=== PATIENT | female | born 1975 | race Hispanic/Latino ===

== ENCOUNTER → 2018-10-06 | Day surgery (SDC) | payer BC ==
[~2018-10-06] MED LIST: ADIPEX-P37.5 M1; DICLOFENAC; FENTANYL CITRATE/PF 100MCG/2 ML INJ ONE; HYOSCYAMINE SULFATE 0.5 MG/ML INJ ONE; LIDOCAINE HCL 2% LOCAL INJ 5 ML SDV VIAL INJ ONE; MIDAZOLAM HCL 2 MG/2 ML VIAL ONE; PROPOFOL IV EMULSION 10 MG/ML 20 ML VIAL ONE; PROPOFOL IV EMULSION 10 MG/ML 50 ML VIAL ONE
--- NOTE | 2018-10-06 14:44 | Operative Report ---
DATE OF PROCEDURE: October 06, 2018 REFERRING PHYSICIAN: Dr. Deangelo Cleveland. PROCEDURE PERFORMED: Colonoscopy and polypectomy. INDICATIONS FOR COLONOSCOPY: Colorectal cancer screening. Mother with colon cancer. MEDICATION: Patient was done under MAC. Please see anesthesiologist's note. PROCEDURE: With the patient in left lateral decubitus position, a flexible fiberoptic Olympus colonoscope was inserted into the rectum with ease and advanced all the way to the cecum. Mucosa overlying the cecum appeared to be within normal limits. Two minute polyps were hot biopsied from the ascending colon, one site was hemoclipped. The transverse descending and sigmoid appeared to be within normal limits. One polyp from the rectum was hot biopsied. The scope was then retroflexed into the distal rectum and small internal hemorrhoids were noted, none of which was actively bleeding. The scope was then straightened out and was subsequently withdrawn. Patient tolerated the procedure well. IMPRESSION 1. Ascending colon polyps x2, hot biopsied, one polypectomy site hemoclipped. 2. Rectal polyp x1, hot biopsied. 3. Internal hemorrhoids, none actively bleeding. PLAN: Follow up histology. Initiate high-fiber, low-fat diet. Initiate high-fiber supplement. Patient might benefit from a followup colonoscopy in 3 years. Job#: [id number] ANISH cc:DR. DEANGELO CLEVELAND
--- OUTSIDE RECORDS SUMMARY | 2018-10-08 11:52 | XMS REPORT ---
Author Author [facility] Address Unknown Phone Unavailable Care Team Providers Care Cast Shell Grinder Name Role Phone Unavailable Unavailable Problems This patient has no known problems. Allergies, Adverse Reactions, Alerts This patient has no known allergies or adverse reactions. Medications This patient has no known medications. Results Test Description Test Time Test Comments Text Results Atomic Results Result Comments SCR MAMM BILATERAL WON CAD DIGITAL 2018-08-09 15:31:48 - SCR MAMM BILATERAL WON CAD DIGITALBILATERAL DIGITAL SCREENING MAMMOGRAM 3D/2D WITH CAD: 08/09/2018CLINICAL: Asymptomatic. Digital breast tomosynthesis was performed in addition to routine CC and MLO views. Current mammographic images were evaluated by either a Vaavud M-Vu or a Bloggerce ImageChecker CAD (computer aided detection system). No prior exams were available for comparison. There are sca ttered fibroglandular tissues in both breasts. No suspicious mass, architectural distortion, malignant type calcification, or lymph node abnormality detected. IMPRESSION: NEGATIVEThere is no mammographic evidence of malignancy. Resume annual screening mammography in one year. Alfreda walsh/traci:08/09/2018 15:31:48 Unit Support Representative: Su EL, [facility]-FWletter sent: BIRADS 1-2 Normal Mammogram BI-RADS: 1 Negative
== END | disposition home or self-care (01) ==
LOC: OR 09:19
PROVIDERS: ATTEND Internal Medicine Gastroenterology
DX: Z12.11 Encounter for screening for malignant neoplasm of colon (principal); D12.2 Benign neoplasm of ascending colon; D12.8 Benign neoplasm of rectum; K64.8 Other hemorrhoids; R03.0 Elevated blood-pressure reading, without diagnosis of hypertension; M54.5 Low back pain; Z68.32 Body mass index [BMI] 32.0-32.9, adult; Z80.0 Family history of malignant neoplasm of digestive organs
CPT/HCPCS: 45384; 81025; J1980; J2001; J2250; J2704

== ENCOUNTER 2019-08-07 21:42 | Inpatient (IN) | payer BC ==
[~2019-08-07] VITALS: Ht 162.6 cm; Wt 90.7 kg
[~2019-08-07 21:42] MED LIST changes: -FENTANYL CITRATE/PF 100MCG/2 ML INJ ONE; -HYOSCYAMINE SULFATE 0.5 MG/ML INJ ONE; -LIDOCAINE HCL 2% LOCAL INJ 5 ML SDV VIAL INJ ONE; -MIDAZOLAM HCL 2 MG/2 ML VIAL ONE; -PROPOFOL IV EMULSION 10 MG/ML 20 ML VIAL ONE; -PROPOFOL IV EMULSION 10 MG/ML 50 ML VIAL ONE
[2019-08-07] MEDS ORDERED: SODIUM CHLORIDE 0.9% 1000ML 1,000 ML IV STA (22:04)
[2019-08-07] MEDS ORDERED: SODIUM CHLORIDE 0.9% 1000ML 1,000 ML ONE (22:21)
[2019-08-07] MEDS ORDERED: SODIUM CHLORIDE 0.9% 1000ML 1,000 ML IV ONE (22:30)
[2019-08-07 22:52] LABS: BASOPHILS % 0.2 % (0.0-1.0); EOSINOPHILS % 0.1 % (0.0-6.0); HEMATOCRIT 40.8 % (34.2-44.1); HEMOGLOBIN 13.9 g/dL (12.0-16.0); LYMPHOCYTES # (AUTO) 2.4 (1.0-3.2); LYMPHOCYTES % 11.9 % (18.0-39.1); MEAN CORPUSCULAR HEMOGLOBIN 29.6 pg (28-32); MEAN CORPUSCULAR HGB CONC 34.1 g/dL (31-35); MONOCYTES # (AUTO) 1.3 (0.2-0.8); MONOCYTES % 6.2 % (4.4-11.3); NEUTROPHILS # (AUTO) 16.1 (2.1-6.9); NEUTROPHILS % 79.3 % (38.7-80.0); PLATELET COUNT 254 x10e3/uL (140-360); RED BLOOD COUNT 4.69 x10e6/uL (3.6-5.1); RED CELL DISTRIBUTION WIDTH 13.9 % (11.7-14.4)
[2019-08-07 22:56] LABS: INR 0.83; PROTHROMBIN TIME 11.9 seconds (11.9-14.5)
[2019-08-07 23:06] LABS: ALBUMIN 3.3 g/dL (3.5-5.0); ALBUMIN/GLOBULIN RATIO 1.1 (0.8-2.0); ANION GAP 21.3 mmol/L (8-16); CALCIUM 9.2 mg/dL (8.4-10.2); CREATININE, SERUM 1.7 mg/dL (0.57-1.11)
[2019-08-07 23:12] LABS: POTASSIUM 2.3 mmol/L (3.5-5.1)
[2019-08-07 23:14] LABS: CREATINE KINASE MB 0.9 ng/mL (0-5.0)
[2019-08-07] MEDS ORDERED: POTASSIUM CHLORIDE 10MEQ/100ML 100 ML IV ONE (23:15)
[2019-08-07] MEDS ORDERED: POTASSIUM CHLORIDE 10MEQ EA PO ONE (23:15)
--- NOTE | 2019-08-07 23:48 | Diagnostic Imaging Report ---
History: High blood pressure Comparison studies: None Technique: Axial images were obtained from the skull base to the vertex. Coronal and sagittal reconstructions obtained from the axial data. Dose modulation, iterative reconstruction, and/or weight based adjustment of the mA/kV was utilized to reduce the radiation dose to as low as reasonably achievable. Findings: Scalp/skull: No abnormalities. No fractures, blastic or lytic lesions. Extra-axial spaces: No masses. No fluid collections. Brain sulci: Appropriate for age. Ventricles: Normal in size and configuration. No hydrocephalus. Parenchyma: No abnormal densities. No masses, hemorrhage, acute or chronic cortical vascular insults. Sellar/suprasellar region: No abnormalities Craniocervical junction: Patent foramen magnum. No Chiari one malformation. IMPRESSION: No abnormalities . Signed by: DR Fredy Lynch M.D. on 08/07/2019 11:44 PM
--- NOTE | 2019-08-07 23:54 | Diagnostic Imaging Report ---
EXAMINATION: CHEST SINGLE (PORTABLE) INDICATION: High blood pressure COMPARISON: None FINDINGS: AP view TUBES and LINES: None. LUNGS: Low lung volumes. Mild central bronchial wall thickening. No consolidations. PLEURA: No pleural effusion or pneumothorax. HEART AND MEDIASTINUM: The cardiomediastinal silhouette is unremarkable. BONES AND SOFT TISSUES: No acute osseous lesion. Soft tissues are unremarkable. UPPER ABDOMEN: No free air under the diaphragm. IMPRESSION: Low lung volumes. Mild central bronchial wall thickening can be seen with bronchitis. Signed by: Mitchell Diane DO on 08/07/2019 11:51 PM
[2019-08-08] VITALS (7 sets, daily range): BP systolic 100–120; BP diastolic 54–65
[2019-08-08] MEDS ORDERED: PIPER-TAZ 3.375 GM 50 ML IV SCH
[2019-08-08 00:05] LABS: BILIRUBIN,URINE NEGATIVE (NEGATIVE); CLARITY,URINE SL CLOUDY (CLEAR); COLOR,URINE YELLOW (YELLOW); KETONES,URINE NEGATIVE (NEGATIVE); LEUKOCYTE ESTERASE ,URINE NEGATIVE (NEGATIVE); NITRITE,URINE NEGATIVE (NEGATIVE); PROTEIN,URINE DIPSTICK 2+ (NEGATIVE); URINE UROBILINOGEN 0.2 mg/dL (0.2 - 1)
[2019-08-08] MEDS: SODIUM CHLORIDE 0.9% 1000ML 1,000 ML IV SCH ×4 (00:07→23:24)
[2019-08-08 00:11] LABS: BACTERIA,URINE RARE /HPF; EPITHELIAL CELLS,URINE FEW /LPF; RBC,URINE 0-5 /HPF (0-5)
[2019-08-08 00:12] LABS: MUCUS,URINE MODERATE (RARE)
[2019-08-08 02:44] LABS: BASOPHILS % 0.2 % (0.0-1.0); EOSINOPHILS % 0.1 % (0.0-6.0); HEMATOCRIT 33.4 % (34.2-44.1); HEMOGLOBIN 11.2 g/dL (12.0-16.0); LYMPHOCYTES # (AUTO) 1.5 (1.0-3.2); LYMPHOCYTES % 12.3 % (18.0-39.1); MEAN CORPUSCULAR HEMOGLOBIN 29.7 pg (28-32); MEAN CORPUSCULAR HGB CONC 33.5 g/dL (31-35); MEAN CORPUSCULAR VOLUME 88.6 fL (81-99); MONOCYTES # (AUTO) 0.9 (0.2-0.8); MONOCYTES % 7.3 % (4.4-11.3); NEUTROPHILS # (AUTO) 9.4 (2.1-6.9); NEUTROPHILS % 77.9 % (38.7-80.0); RED BLOOD COUNT 3.77 x10e6/uL (3.6-5.1); RED CELL DISTRIBUTION WIDTH 13.8 % (11.7-14.4)
[2019-08-08] MEDS ORDERED: SODIUM CHLORIDE 0.9% 1000ML 1,000 ML IV SCH (02:45)
[2019-08-08 02:48] LABS: PLATELET COUNT 155 x10e3/uL (140-360)
[2019-08-08 03:03] LABS: ANION GAP 14.5 mmol/L (8-16); CREATININE, SERUM 1.04 mg/dL (0.57-1.11); MAGNESIUM 2.1 MG/DL (1.3-2.1)
[2019-08-08 03:04] LABS: POTASSIUM 2.5 mmol/L (3.5-5.1)
[2019-08-08 03:05] LABS: CALCIUM 7.8 mg/dL (8.4-10.2)
[2019-08-08] MEDS ORDERED: POTASSIUM CHLORIDE 10MEQ/100ML 100 ML IV ONE (03:15)
[2019-08-08] MEDS ORDERED: POTASSIUM CHLORIDE 10MEQ EA PO ONE (03:15)
[2019-08-08 05:57] LABS: CREATINE KINASE MB 1.1 ng/mL (0-5.0)
[2019-08-08 06:42] LABS: ALANINE AMINOTRANSFERASE 26 IU/L (0-55); ALBUMIN 2.3 g/dL (3.5-5.0); ALKALINE PHOSPHATASE 47 IU/L (40-150); ANION GAP 13.7 mmol/L (8-16); CALCIUM 7.5 mg/dL (8.4-10.2); CARBON DIOXIDE 25 mmol/L (22-29); CHLORIDE 102 mmol/L (98-107); CREATININE, SERUM 0.91 mg/dL (0.57-1.11); GLUCOSE 158 mg/dL (74-118); SODIUM 138 mmol/L (136-145)
[2019-08-08 06:45] LABS: POTASSIUM 2.7 mmol/L (3.5-5.1)
--- NOTE | 2019-08-08 06:45 | NUR ---
NOTIFIED DR CLEVELAND OF CRITICAL POTASSIUM OF 2.7; 40MEQ PO NOW AND REPEAT IN 4 HOURS;
--- NOTE | 2019-08-08 07:09 | NUR ---
NOTIFIED DR CLEVELAND OF CRITICAL LACTIC OF 3.2
[2019-08-08 07:11] LABS: BLOOD UREA NITROGEN 25 mg/dL (7-26); BUN/CREATININE RATIO 29 (6-25)
[2019-08-08 07:31] LABS: EST GLOMERULAR FILTRATION RATE > 60 ML/MIN (60-)
[2019-08-08] MEDS ORDERED: POTASSIUM CHLORIDE 20 MEQ TAB CR PO STA (07:31)
[2019-08-08] MEDS: PIPER-TAZ 3.375 GM 50 ML IV SCH ×3 (07:40→21:00)
--- NOTE | 2019-08-08 11:07 | History and Physical ---
REASON FOR ADMISSION: 1. Dehydration. 2. Hypotension. 3. Hypokalemia. 4. Leukocytosis. HISTORY OF PRESENT ILLNESS: The patient is a 44-year-old lady, evidence of severe hypertension yesterday with blood pressures of 200/120 with a pulse rate of 120 and sinus tachycardia. She was given some Edarbi and beta blockers signs of acute renal failure with hypokalemia and leukocytosis. Currently, the patient is feeling much better with fluid boluses. PAST MEDICAL HISTORY: Significant for hypertension, hypothyroidism, chronic anemia. MEDICATIONS: See DEC. ALLERGIES: NONE. SOCIAL HISTORY: Nonsmoker, nondrinker. Lives at home with her family. PHYSICAL EXAMINATION: VITAL SIGNS: Temperature is currently 92/60, pulse 74, sats 100% on room air. GENERAL: She is in no apparent distress, lying in bed. NECK: Supple. No lymphadenopathy. CARDIOVASCULAR: Regular rate and rhythm. LUNGS: Clear to auscultation bilaterally. ABDOMEN: Good bowel sounds. Soft, nontender. EXTREMITIES: No clubbing or cyanosis. NEUROLOGIC: Nonfocal. ASSESSMENT AND PLAN: 1. Hypotension, most likely secondary to the Edarbi since the patient is now found to be in severe dehydration so we will continue with IV fluids and obviously hold the blood pressure medicines. 2. Dehydration. Continue with IV fluids. 3. Acute renal failure. Continue with IV fluids and should resolve with fluids. 4. Hypokalemia. We will continue to replace. 5. Leukocytosis. We will continue to monitor the patient on antibiotics. Please see hospital chart for full details. MD JOSE RAFAEL Oneill/KIMBERLYL /[id number]
--- NOTE | 2019-08-08 14:44 | NUR ---
WOUNDCARE CONSULT FOR 44 YO FEMALE ADMIT FROM ER HOLDING HX OF LEFT LE PARTIAL THICKNESS INJURY R/T FALL LABS : WBC-12.07 ,HGB- 11.2 GLUCOSE - 158 BLOOD CULTURE PENDING PATIENT TAKING IV ANTIBIOTICS PIPERACILLIN WOUND ON LEFT LOWER LEG PARTIAL THICKNESS 14CM X 6.5CM X .2 CM WITH 75% YELLOW SLOUGH AND 25% RED BEEFY GRANDULATION SURROUNDING TISSUE NEWLY EPITHELIZED PINK AND BLANCHABLE PATIENT REPORTS PAIN WHEN AREA IS TOUCHED BUT STATES NO PAIN AT TIME OF THIS ASSESSMENT FURTHER DESCRIPTION OF WOUND IS ON WOUND ASSESSMENT FORM RECOMMENDATIONS : NURSING TO DAILY CLEAN WITH NS AND APPLY SANTYL TO LEFT LEG PARTIAL THICKNESS WOUND BED YELLOW SLOUGH COVER WITH 4X4 WRAP WITH KERLIX SECURE WITH LIGHTLY WRAPPED COBAN ONCE WOUND BED IS FREE OF SLOUGH A COLLAGEN APPLICATION CAN BE USED ON CLEAN WOUND BED TO HELP FURTHER PROMOTE EPITHELIALIZATION AND HEALING NURSING TO RECONSULT WOUND CARE IF ANY FURTHER ASSISTANCE IS NEEDED Addendum: 08/08/19 at 1502 by Rich Lawson RN Amended: Links added.
--- NOTE | 2019-08-08 19:35 | NUR ---
Patient received sitting in chair. AAO x 4. Patient had no complaints of pain. Respirations even and non-labored. Fall precautions implemented. Dressing to left leg CDI. IVF infusing at 125 cc/hr. Patient instructed to call for assistance when needed. Call light within reach.
[2019-08-09] VITALS (7 sets, daily range): BP systolic 100–171; BP diastolic 48–113
[2019-08-09] MEDS: PIPER-TAZ 3.375 GM 50 ML IV SCH ×4 (03:57→20:00)
[2019-08-09 05:35] LABS: BASOPHILS % 0.3 % (0.0-1.0); HEMATOCRIT 33.6 % (34.2-44.1); HEMOGLOBIN 10.8 g/dL (12.0-16.0); LYMPHOCYTES # (AUTO) 1.2 (1.0-3.2); LYMPHOCYTES % 16.3 % (18.0-39.1); MEAN CORPUSCULAR HEMOGLOBIN 29.4 pg (28-32); MEAN CORPUSCULAR HGB CONC 32.1 g/dL (31-35); MEAN CORPUSCULAR VOLUME 91.6 fL (81-99); MONOCYTES # (AUTO) 0.3 (0.2-0.8); MONOCYTES % 4.5 % (4.4-11.3); NEUTROPHILS # (AUTO) 5.8 (2.1-6.9); PLATELET COUNT 164 x10e3/uL (140-360); RED BLOOD COUNT 3.67 x10e6/uL (3.6-5.1); RED CELL DISTRIBUTION WIDTH 14.3 % (11.7-14.4)
--- NOTE | 2019-08-09 05:42 | NUR ---
Femoral central line dressing changed. Patient tolerated well.
[2019-08-09 05:59] LABS: ALANINE AMINOTRANSFERASE 29 IU/L (0-55); ALBUMIN 2.5 g/dL (3.5-5.0); ALKALINE PHOSPHATASE 53 IU/L (40-150); ANION GAP 12.3 mmol/L (8-16); BLOOD UREA NITROGEN 20 mg/dL (7-26); BUN/CREATININE RATIO 31 (6-25); CARBON DIOXIDE 22 mmol/L (22-29); CHLORIDE 112 mmol/L (98-107); CREATININE, SERUM 0.64 mg/dL (0.57-1.11); EST GLOMERULAR FILTRATION RATE > 60 ML/MIN (60-); GLUCOSE 151 mg/dL (74-118); POTASSIUM 3.3 mmol/L (3.5-5.1); SODIUM 143 mmol/L (136-145)
[2019-08-09] MEDS: COLLAGENASE OINTMENT 30 GM TUBE TP SCH (08:27)
[2019-08-09 08:40] LABS: BAND NEUTROPHILS % (MANUAL) 1 %; LYMPHOCYTES % (MANUAL) 18 % (19-48); MONOCYTES % (MANUAL) 2 % (3.4-9.0); NEUTROPHILS % (MANUAL) 78 % (40-74)
[2019-08-09 08:41] LABS: ANISOCYTOSIS SLIGHT; OVALOCYTES FEW; POIKILOCYTOSIS SLIGHT
[2019-08-09 08:42] LABS: RBC MORPHOLOGY COMMENT NORMAL
[2019-08-09 08:43] LABS: PLATELET ESTIMATE ADEQUATE; PLATELET MORPHOLOGY COMMENT FEW LARGE
[2019-08-09] MEDS ORDERED: HYDRALAZINE HCL 20 MG/ML VIAL IV STA (08:43)
[2019-08-09] MEDS ORDERED: POTASSIUM CHLORIDE 20 MEQ TAB CR PO ONE (09:00)
[2019-08-09] MEDS: SODIUM CHLORIDE 0.9% 1000ML 1,000 ML IV SCH ×2 (09:18→15:31)
--- NOTE | 2019-08-09 17:40 | Diagnostic Imaging Report ---
EXAMINATION: Renal Doppler ultrasound. CLINICAL HISTORY :Hypertension COMPARISON: None TECHNIQUE: Grayscale and color Doppler evaluation of the kidneys and bladder was performed in transverse and longitudinal planes. Doppler interrogation of the main, hilar, segmental and arcuate renal arteries bilaterally as well as evaluation of the aorta were performed. DISCUSSION: RIGHT KIDNEY: The right kidney measures 11.2 cm in length and shows normal echogenicity. The right renal cortex measures 1.4 cm. No hydronephrosis, shadowing calculi or solid mass lesions. . Right main renal artery PSV is 26.4 cm/sec. Highest right hilar artery PSV is 27.5cm/sec. Highest right segmental artery PSV is 61.2 cm/sec. Arterial waveforms are normal. The right renal artery PSV/aortic PSV ratio is 0.5. LEFT KIDNEY: The left kidney measures 11.0 cm in length and shows normal echogenicity. The left renal cortex measures 1.6 cm. No hydronephrosis, shadowing calculi or solid mass lesions. Left main renal artery PSV is 69.0 cm/sec. Highest left hilar artery PSV is 69.0 cm/sec. Highest left segmental artery PSV is 81.3cm/sec. Arterial waveforms are normal. The left renal artery PSV/aortic PSV ratio is 1.4. Abdominal aortic PSV is 50.7 cm/sec. BLADDER: No mass or calculi. The bladder measures 4.7 x 3.4 x 6.3 cm. IMPRESSION: Renal arterial velocities as above. No hydronephrosis or renal calculi. Signed by: Sheyla Patrick MD on 08/09/2019 5:36 PM
--- NOTE | 2019-08-09 20:40 | NUR ---
R femoral cath d/c, noted excessive bleeding, hematoma, and bruising. Rapid response called. Applied surgiseal. Called Dr. Kwon studio operations engineer in charge and received orders.
[2019-08-09] MEDS ORDERED: SODIUM CHLORIDE 0.9% 1000ML 2,000 ML ONE (20:42)
[2019-08-09 20:53] LABS: HEMATOCRIT 30.9 % (34.2-44.1); HEMOGLOBIN 9.7 g/dL (12.0-16.0)
[2019-08-09 21:13] LABS: ANION GAP 14.9 mmol/L (8-16); BLOOD UREA NITROGEN 20 mg/dL (7-26); BUN/CREATININE RATIO 28 (6-25); CALCIUM 7.8 mg/dL (8.4-10.2); CARBON DIOXIDE 18 mmol/L (22-29); CHLORIDE 112 mmol/L (98-107); CREATININE, SERUM 0.72 mg/dL (0.57-1.11); EST GLOMERULAR FILTRATION RATE > 60 ML/MIN (60-); GLUCOSE 319 mg/dL (74-118); POTASSIUM 3.9 mmol/L (3.5-5.1); SODIUM 141 mmol/L (136-145)
[2019-08-09] MEDS ORDERED: HYDROCODONE/APAP 5MG-325MG TAB PO PRN (21:30)
--- NOTE | 2019-08-09 21:40 | NUR ---
Dr. Lama stated to hold patient discharge until tomorrow.
[2019-08-09] MEDS ORDERED: SODIUM CHLORIDE 0.9% 250ML 250 ML ONE (21:57)
[2019-08-10] VITALS (8 sets, daily range): BP systolic 114–153; BP diastolic 59–95
[2019-08-10] MEDS: SODIUM CHLORIDE 0.9% 1000ML 1,000 ML IV SCH ×3 (01:00→20:40)
[2019-08-10 01:55] LABS: HEMATOCRIT 25.2 % (34.2-44.1); HEMOGLOBIN 8.3 g/dL (12.0-16.0)
[2019-08-10] MEDS: PIPER-TAZ 3.375 GM 50 ML IV SCH ×4 (03:00→20:40)
--- NOTE | 2019-08-10 04:48 | Discharge Summary ---
DISCHARGE DIAGNOSES: 1. Acute renal failure. 2. Dehydration. 3. Hypotension. 4. Leukocytosis. HISTORY OF PRESENT ILLNESS AND HOSPITAL COURSE: See hospital chart for full details. The patient is a lady, well known to me, presented to the office with hypertensive emergency, where she was placed on Edarbi, where the patient went home and unfortunately got hypotensive. She came to the emergency room where she was then noted to be in acute renal failure, most likely secondary to over diuretics and dehydration, which caused a high renin angiotensin state and therefore the sudden drop in her blood pressure after she did take 1 dose of the Edarbi, so she was brought in and held on the medication, placed on IV fluids and replaced of her electrolytes. As her blood pressure improved, electrolytes improved. The patient felt great. She was back to her baseline at the time of discharge. She is able to be discharged home with continuation of her home medicines and follow up with me in 3 days in the office. Please see hospital chart for full details. MD JOSE RAFAEL Oneill/SUMAN /[id number]
[2019-08-10] MEDS: COLLAGENASE OINTMENT 30 GM TUBE TP SCH (08:20)
--- NOTE | 2019-08-10 10:13 | Progress Note ---
DATE: 08/10/2019 SUBJECTIVE: The patient came in with extreme dehydration. Femoral line was put in. Yesterday when the femoral line was taken out, the patient did not stop bleeding and Angio-Seal was placed and the patient is better now. H and H are stabilized. Currently still complaining of some pain in the right femoral area. No abdominal pain. No chest pain. No shortness of breath. No nausea, vomiting, or diarrhea. Positive for hypertensive episodes and slight dizziness on getting up. OBJECTIVE: VITAL SIGNS: Temperature is 97.5, pulse is 105, respirations of 19, blood pressure is 114/73, and pulse oximetry of 93%. HEENT: Normocephalic, atraumatic. CVS: S1 and S2 normal. Regular rate and rhythm. ABDOMEN: Nontender, nondistended. EXTREMITIES: No clubbing, no cyanosis, no edema. The femoral area with Angio-Seal present. Positive for some ecchymosis around the area. Also has ecchymosis in the left elbow area. No signs of trauma noted. LABORATORY VALUES: Hemoglobin is 8.3, hematocrit 25.2, white count is 7.61, came in with white count of 20,000 with sepsis. Chemistry; sodium is 141, potassium of 3.9, BUN of 20, creatinine 0.72, glucose is 319. Coags are normal. ASSESSMENT: 1. Sepsis. The patient is currently on antibiotic. She is on Zosyn. 2. Acute kidney injury with acidosis. The patient's creatinine has improved. We will continue to monitor. 3. Acute blood loss anemia from a femoral line. Angio-Seal has been established and the patient is doing better. Continue monitoring her BMP. 4. Hyperglycemia. Check A1c. 5. Blood cultures are negative. Urinary tract infection. Continue on Zosyn. Further recommendation per clinical course. We will keep the patient overnight tonight and continue monitoring her. MD LISA AustinJ/MODL /[id number]
[2019-08-11] VITALS (8 sets, daily range): BP systolic 133–195; BP diastolic 86–116
[2019-08-11] MEDS: PIPER-TAZ 3.375 GM 50 ML IV SCH ×4 (01:35→20:00)
[2019-08-11] MEDS ORDERED: BISACODYL 5 MG TAB EC PO ONE (02:01)
[2019-08-11 05:36] LABS: BASOPHILS % 0.1 % (0.0-1.0); EOSINOPHILS % 0.1 % (0.0-6.0); LYMPHOCYTES # (AUTO) 1.5 (1.0-3.2); LYMPHOCYTES % 18.6 % (18.0-39.1); MEAN CORPUSCULAR HGB CONC 32.2 g/dL (31-35); MEAN CORPUSCULAR VOLUME 93.3 fL (81-99); MONOCYTES # (AUTO) 0.4 (0.2-0.8); MONOCYTES % 4.9 % (4.4-11.3); NEUTROPHILS # (AUTO) 5.6 (2.1-6.9); NEUTROPHILS % 69.6 % (38.7-80.0); PLATELET COUNT 128 x10e3/uL (140-360); RED BLOOD COUNT 2.23 x10e6/uL (3.6-5.1); RED CELL DISTRIBUTION WIDTH 14.7 % (11.7-14.4)
[2019-08-11 05:39] LABS: HEMATOCRIT 20.8 % (34.2-44.1); HEMOGLOBIN 6.7 g/dL (12.0-16.0)
[2019-08-11 05:59] LABS: ANION GAP 10.5 mmol/L (8-16); BLOOD UREA NITROGEN 9 mg/dL (7-26); BUN/CREATININE RATIO 17 (6-25); CALCIUM 7.9 mg/dL (8.4-10.2); CARBON DIOXIDE 21 mmol/L (22-29); CHLORIDE 112 mmol/L (98-107); CREATININE, SERUM 0.52 mg/dL (0.57-1.11); EST GLOMERULAR FILTRATION RATE > 60 ML/MIN (60-); GLUCOSE 138 mg/dL (74-118); POTASSIUM 3.5 mmol/L (3.5-5.1); SODIUM 140 mmol/L (136-145)
[2019-08-11 07:16] LABS: HEMATOCRIT 20.7 % (34.2-44.1); HEMOGLOBIN 6.6 g/dL (12.0-16.0)
[2019-08-11] MEDS ORDERED: FUROSEMIDE INJ 10 MG/ML 2 ML VIAL IV ONE (08:00)
[2019-08-11] MEDS ORDERED: SODIUM CHLORIDE 0.9% 250ML 250 ML IV NR (08:15)
[2019-08-11] MEDS: COLLAGENASE OINTMENT 30 GM TUBE TP SCH (08:26)
[2019-08-11] MEDS ORDERED: IOPAMIDOL 370 MG/ML 200 ML INFUS..BTL INJ ONE ×2 (08:50→18:40)
[2019-08-11] MEDS ORDERED: SODIUM CHLORIDE 0.9% 50ML 0 ML ONE (08:50)
[2019-08-11 09:09] LABS: INR 0.94; PROTHROMBIN TIME 13.1 seconds (11.9-14.5)
[2019-08-11 10:20] LABS: PARTIAL THROMBOPLASTIN TIME 21.4 seconds (23.8-35.5)
--- NOTE | 2019-08-11 10:33 | Progress Note ---
DATE: 08/11/2019 SUBJECTIVE: The patient is a 44-year-old female, who came in with acute abdominal infection, probably urinary. The patient's white count is elevated. Lactic acid was elevated too. The patient is on Zosyn right now. The patient had a femoral line placed and placement was removed, and the patient had acute amount of bleeding with ecchymosis around the area of bleed. Angio-Seal was established. The patient continues to bleed at the site and ecchymosis is noted. Hemoglobin has dropped from considerably to 6.8 at this time. The patient is not symptomatic except for some abdominal pain. No chest pain. Positive also for shortness of breath on exertion. OBJECTIVE: VITAL SIGNS: Temperature is 97.8, pulse of 96, respirations of 20, blood pressure is 133/87, pulse oximetry of 100% on room air. HEENT: Normocephalic, atraumatic. The patient has a slight amount of edema noted on the face. CVS: S1 and S2 normal. Regular rate and rhythm. ABDOMEN: Tender in the right upper quadrant. EXTREMITIES: No clubbing, no cyanosis. Positive for 2+ edema. MEDICATIONS: At this time, Zosyn. She is getting a Santyl for skin tear on her left leg. She is also getting sodium chloride 75 mL an hour, which we will discontinue. ASSESSMENT: Ms. Venita Chappell with acute blood loss anemia, probably femoral site. PLAN: 1. Transfuse 2 units of PRBC with Lasix in between. 2. Skin shows a lot of ecchymosis in and around the side of the femoral access and also in and around her elbows, and also in her face and abdomen. We will go ahead and check the platelets again and continue monitoring this. Possible consult with Dr. Blackmon, Hematology is on board. 3. Hypertension, better controlled at this time. We will continue to monitor her blood pressures. 4. Impaired fasting glucose with elevated glucose, hemoglobin A1c of 6.3. Lasix also will be given for the patient. Further recommendation per clinical course. We will keep a close eye on this patient and monitor very closely. Further recommendation per clinical course. MD LISA AustinJ/SUMAN /[id number]
--- NOTE | 2019-08-11 15:05 | NUR ---
Visit made by the Spiritual Care Department Pastoral Visitor, Matt Mccarthy. PV provided pastoral presence, hospitality, and supportive listening. Pastoral Visitor informed pt/family of the scope of [facility] [employer] and availability. EVAN SOSA Licensed Psychologist Manager Spiritual Care Department O: [phone] Pager: [phone] ([phone] number calling from)
[2019-08-11] MEDS ORDERED: SODIUM CHLORIDE 0.9% 250ML 250 ML ONE ×2 (17:20→17:39)
--- NOTE | 2019-08-11 17:35 | Diagnostic Imaging Report ---
EXAM: CT Abdomen and Pelvis WITH contrast INDICATION: ^ABDOMINAL PAIN ^[id number] ^1645 ^Y COMPARISON: Renal Doppler ultrasound 08/09/2019 TECHNIQUE: Abdomen and pelvis were scanned utilizing a multidetector helical scanner from the lung base to the pubic symphysis after administration of IV contrast. Coronal and sagittal reformations were obtained. Routine protocol was performed. Scan was performed when during portal venous phase. IV CONTRAST: 100 mL of Isovue-370 ORAL CONTRAST: None RADIATION DOSE: Total DLP: A 43.5 mGy*cm Estimated effective dose: (DLP x 0.015 x size factor) mSv COMPLICATIONS: None FINDINGS: LINES and TUBES: Gastric banding place. No surrounding fluid collections or fat stranding. LOWER THORAX: Unremarkable HEPATOBILIARY: No focal hepatic lesions. No biliary ductal dilation. GALLBLADDER: Cholecystectomy. SPLEEN: No splenomegaly. PANCREAS: No focal masses or ductal dilatation. ADRENALS: No adrenal nodules KIDNEYS/URETERS: Kidneys enhance symmetrically. No hydronephrosis. No cystic or solid mass lesions. No stones. GI TRACT: No abnormal distention, wall thickening, or evidence of bowel obstruction. Appendix is not visualized and likely surgically absent. PELVIC ORGANS/BLADDER: Unremarkable. LYMPH NODES: No lymphadenopathy. VESSELS: Unremarkable. PERITONEUM / RETROPERITONEUM: No free air or fluid. BONES: Unremarkable. SOFT TISSUES: Moderate fat stranding in the right inguinal region may reflect edema or evolving hematoma. IMPRESSION: Gastric lap banding adequate position with no surrounding fluid collections or fat stranding. No dilatation of the stomach. Cholecystectomy and appendectomy. Fat stranding in the right inguinal region may reflect edema or evolving hematoma. Signed by: Dr. Angie Gama M.D. on 08/11/2019 5:32 PM
--- NOTE | 2019-08-11 17:41 | NUR ---
INFORMED DR JIMÉNEZ ELEVATED BP, ORDERS RECEIVED
[2019-08-11] MEDS: HYDRALAZINE HCL 20 MG/ML VIAL IV PRN (17:54)
--- NOTE | 2019-08-11 17:55 | NUR ---
RECEIVED CALL FROM TELEMETRY, PATIENTS HEART RATE 150, AND PATIENT STATES SHE FELT ANXIOUS WHEN HER HEART RATE INCREASED, BP 149/93 HR 140 02 SATS 100% RA, CALL PLACED TO DR JIMÉNEZ AND INFORMED THAT PATIENTS HEART RATE INCREASED 1 HOUR AFTER TRANSFUSION, ORDERS RECEIVED FOR METOPROLOL 2.5 IVP AND BENADRYL 12.5 MG IVP X 1, CONTINUE TO MONITOR PATIENT CLOSELY AND CALL WITH ANY CHANGES
[2019-08-11] MEDS ORDERED: METOPROLOL TARTRATE INJ 1 MG/ML VIAL IV ONE (18:30)
[2019-08-11] MEDS ORDERED: DIPHENHYDRAMINE HCL INJ 50 MG/ML VIAL IV NR (18:30)
[2019-08-11] MEDS ORDERED: SODIUM CHLORIDE 0.9% 50ML 50 ML ONE (18:40)
[2019-08-11] MEDS ORDERED: FUROSEMIDE INJ 10 MG/ML 2 ML VIAL IV PRN (18:45)
[2019-08-12] VITALS (8 sets, daily range): BP systolic 134–180; BP diastolic 65–108
[2019-08-12] MEDS ORDERED: SODIUM CHLORIDE 0.9% 250ML 250 ML ONE ×2 (00:09→08:16)
--- NOTE | 2019-08-12 00:15 | NUR ---
Started #2 PRBC at this time. BRITNEY. Will continue to monitor.
[2019-08-12] MEDS: PIPER-TAZ 3.375 GM 50 ML IV SCH ×4 (04:17→21:07)
[2019-08-12 05:22] LABS: BASOPHILS % 0.4 % (0.0-1.0); EOSINOPHILS % 0.1 % (0.0-6.0); HEMATOCRIT 31.1 % (34.2-44.1); HEMOGLOBIN 10.3 g/dL (12.0-16.0); LYMPHOCYTES # (AUTO) 1.6 (1.0-3.2); LYMPHOCYTES % 16.5 % (18.0-39.1); MEAN CORPUSCULAR HEMOGLOBIN 29.6 pg (28-32); MEAN CORPUSCULAR HGB CONC 33.1 g/dL (31-35); MEAN CORPUSCULAR VOLUME 89.4 fL (81-99); MONOCYTES # (AUTO) 0.6 (0.2-0.8); MONOCYTES % 5.7 % (4.4-11.3); NEUTROPHILS # (AUTO) 7.1 (2.1-6.9); NEUTROPHILS % 72.5 % (38.7-80.0); PLATELET COUNT 129 x10e3/uL (140-360); RED BLOOD COUNT 3.48 x10e6/uL (3.6-5.1); RED CELL DISTRIBUTION WIDTH 15.5 % (11.7-14.4)
[2019-08-12 05:57] LABS: ALANINE AMINOTRANSFERASE 29 IU/L (0-55); ALBUMIN/GLOBULIN RATIO 1.1 (0.8-2.0); ALKALINE PHOSPHATASE 52 IU/L (40-150); ANION GAP 15.3 mmol/L (8-16); BLOOD UREA NITROGEN 8 mg/dL (7-26); BUN/CREATININE RATIO 15 (6-25); CALCIUM 8.7 mg/dL (8.4-10.2); CARBON DIOXIDE 23 mmol/L (22-29); CHLORIDE 104 mmol/L (98-107); CREATININE, SERUM 0.55 mg/dL (0.57-1.11); EST GLOMERULAR FILTRATION RATE > 60 ML/MIN (60-); GLUCOSE 133 mg/dL (74-118); MAGNESIUM 1.8 MG/DL (1.3-2.1); POTASSIUM 3.3 mmol/L (3.5-5.1); SODIUM 139 mmol/L (136-145)
--- NOTE | 2019-08-12 07:00 | NUR ---
BEDSIDE SHIFT REPORT RECEIVED FROM THE COAL CHEMIST RN. EDUCATED PT ABOUT FALL PRECAUTIONS. BED IS LOW AND LOCKED. SIDE RAILS X2. CALL LIGHT WITH IN EASY REACH. INSTRUCTED PT TO USE CALL LIGHT FOR ANY NEEDS. PT VERBALIZED UNDERSTANDING. PT DENIES NEEDS AT THIS TIME.
[2019-08-12 07:36] LABS: BAND NEUTROPHILS % (MANUAL) 2 %; EOSINOPHILS % (MANUAL) 1 % (0-7); LYMPHOCYTES % (MANUAL) 19 % (19-48); MONOCYTES % (MANUAL) 6 % (3.4-9.0); NEUTROPHILS % (MANUAL) 72 % (40-74); NUCLEATED RED BLOOD CELLS 2
[2019-08-12 07:41] LABS: OVALOCYTES FEW; POIKILOCYTOSIS SLIGHT
[2019-08-12 07:42] LABS: POLYCHROMASIA FEW
[2019-08-12 07:43] LABS: PLATELET ESTIMATE SLIGHTLY DECREASED; PLATELET MORPHOLOGY COMMENT NORMAL
[2019-08-12 07:47] LABS: ANISOCYTOSIS MODERATE; RBC MORPHOLOGY COMMENT ABNORMAL
[2019-08-12] MEDS: HYDRALAZINE HCL 20 MG/ML VIAL IV PRN (07:54)
[2019-08-12] MEDS: COLLAGENASE OINTMENT 30 GM TUBE TP SCH (09:30)
--- NOTE | 2019-08-12 10:00 | NUR ---
PAGED DR. CLEVELAND AND REPORTED THE K LEVEL.
--- NOTE | 2019-08-12 11:00 | NUR ---
NEW ORDER RECEIVED FROM DR. CLEVELAND. 40 MEQ K DUR PO ONCE.
[2019-08-12] MEDS ORDERED: POTASSIUM CHLORIDE 20 MEQ TAB CR PO STA (11:02)
--- NOTE | 2019-08-12 13:30 | NUR ---
PAGED DR. CLEVELAND REGARDING PT D/C PLAN. NO NEW ORDERS RECEIVED.
--- NOTE | 2019-08-12 15:00 | NUR ---
PAGEEsperanza CLEVELAND AND REPORTED PT ELEVATED HR.
[2019-08-12] MEDS: METOPROLOL TARTRATE 25 MG TAB PO SCH (16:42)
--- NOTE | 2019-08-12 19:00 | NUR ---
BEDSIDE SHIFT REPORT GIVEN TO THE CHILLER OPERATOR RN. PT DENIED FURTHER NEEDS.
[2019-08-13 00:11] VITALS: BP 147/96
[2019-08-13] MEDS: PIPER-TAZ 3.375 GM 50 ML IV SCH ×2 (02:21→08:00)
[2019-08-13 04:59] VITALS: BP 182/95
[2019-08-13 05:26] LABS: BASOPHILS % 0.1 % (0.0-1.0); EOSINOPHILS % 0.1 % (0.0-6.0); HEMATOCRIT 28.3 % (34.2-44.1); HEMOGLOBIN 9.5 g/dL (12.0-16.0); LYMPHOCYTES # (AUTO) 1.1 (1.0-3.2); LYMPHOCYTES % 15.5 % (18.0-39.1); MEAN CORPUSCULAR HEMOGLOBIN 30.4 pg (28-32); MEAN CORPUSCULAR HGB CONC 33.6 g/dL (31-35); MEAN CORPUSCULAR VOLUME 90.4 fL (81-99); MONOCYTES # (AUTO) 0.4 (0.2-0.8); MONOCYTES % 6.3 % (4.4-11.3); NEUTROPHILS # (AUTO) 5.1 (2.1-6.9); NEUTROPHILS % 73.8 % (38.7-80.0); PLATELET COUNT 132 x10e3/uL (140-360); RED BLOOD COUNT 3.13 x10e6/uL (3.6-5.1); RED CELL DISTRIBUTION WIDTH 16.3 % (11.7-14.4)
[2019-08-13 05:44] LABS: ALANINE AMINOTRANSFERASE 31 IU/L (0-55); ALBUMIN 2.9 g/dL (3.5-5.0); ALBUMIN/GLOBULIN RATIO 1.2 (0.8-2.0); ALKALINE PHOSPHATASE 48 IU/L (40-150); BLOOD UREA NITROGEN 12 mg/dL (7-26); BUN/CREATININE RATIO 20 (6-25); CALCIUM 8.5 mg/dL (8.4-10.2); CARBON DIOXIDE 22 mmol/L (22-29); CHLORIDE 110 mmol/L (98-107); CREATININE, SERUM 0.61 mg/dL (0.57-1.11); EST GLOMERULAR FILTRATION RATE > 60 ML/MIN (60-); GLUCOSE 134 mg/dL (74-118); SODIUM 141 mmol/L (136-145)
[2019-08-13 06:30] LABS: MONOCYTES % (MANUAL) 7 % (3.4-9.0); NUCLEATED RED BLOOD CELLS 2
[2019-08-13 06:32] LABS: ANISOCYTOSIS SLIGHT; BAND NEUTROPHILS % (MANUAL) 2 %; LYMPHOCYTES % (MANUAL) 11 % (19-48); NEUTROPHILS % (MANUAL) 77 % (40-74); POIKILOCYTOSIS SLIGHT; POLYCHROMASIA FEW; RBC MORPHOLOGY COMMENT ABNORMAL
[2019-08-13 06:33] LABS: PLATELET ESTIMATE SLIGHTLY DECREASED; PLATELET MORPHOLOGY COMMENT NORMAL
--- NOTE | 2019-08-13 07:00 | NUR ---
BEDSIDE SHIFT REPORT RECEIVED FROM THE HIGH REACH OPERATOR RN. EDUCATED PT ABOUT FALL PRECAUTIONS. BED IS LOW AND LOCKED. SIDE RAILS X2. CALL LIGHT WITH IN EASY REACH. INSTRUCTED PT TO USE CALL LIGHT FOR ANY NEEDS. PT VERBALIZED UNDERSTANDING. PT DENIES NEEDS AT THIS TIME.
[2019-08-13 07:22] VITALS: BP 167/91
[2019-08-13] MEDS: METOPROLOL TARTRATE 25 MG TAB PO SCH (07:32)
[2019-08-13] MEDS: COLLAGENASE OINTMENT 30 GM TUBE TP SCH (07:33)
[2019-08-13 07:41] VITALS: BP 167/91
--- NOTE | 2019-08-13 07:45 | NUR ---
PT REFUSED ANTIBIOTICS. AT BEDSIDE.
--- NOTE | 2019-08-13 08:15 | NUR ---
PT DISCHARGED HOME SAFELY WITH HER .PT ESCORTED VIA WHEEL CHAIR TO THE FRONT ENTRANCE. TELE AND IV REMOVED. TIP INTACT. DRESSING APPLIED. NO RX PER DR. CLEVELAND. PT DENIED FURTHER NEEDS.
== END 2019-08-13 08:00 | disposition home or self-care (01) | DRG 872 ==
LOC: ER 21:42 → ERHOLD 23:39 → MED/SURG2 08-08 08:30
PROVIDERS: ADMIT Internal Medicine; ATTEND Internal Medicine
PROC: 02HV33Z Insertion of Infusion Device into Superior Vena Cava, Percutaneous Approach (ICD-10-PCS; principal; 2019-08-08)
PROC: B548ZZA Ultrasonography of Superior Vena Cava, Guidance (ICD-10-PCS; 2019-08-08)
PROC: 02PYX3Z Removal of Infusion Device from Great Vessel, External Approach (ICD-10-PCS; 2019-08-09)
DX: A41.9 Sepsis, unspecified organism (principal); N17.9 Acute kidney failure, unspecified; L97.821 Non-pressure chronic ulcer of other part of left lower leg limited to breakdown of skin; D62 Acute posthemorrhagic anemia; N39.0 Urinary tract infection, site not specified; T82.838A Hemorrhage due to vascular prosthetic devices, implants and grafts, initial encounter; E87.2 Acidosis; E86.0 Dehydration; I95.2 Hypotension due to drugs; D72.829 Elevated white blood cell count, unspecified; D72.825 Bandemia; E87.6 Hypokalemia; T46.1X5A Adverse effect of calcium-channel blockers, initial encounter; R73.9 Hyperglycemia, unspecified; S70.11XA Contusion of right thigh, initial encounter
CPT/HCPCS: 36415; 36555; 70450; 71045; 74177; 80048; 80053; 81001; 81025; 82550; 82553; 83036; 83605; 83735; 83880; 84484; 85014; 85018; 85025; 85379; 85384; 85610; 85730; 86850; 86900; 86920; 87040; 93005; 93306; 93976; 99284; J0360; J1200; J1940; J2543; J3480; J7030; J7050; P9016; Q9967

== ENCOUNTER 2019-10-24 19:19 | Inpatient (IN) | payer BC ==
[~2019-10-24] VITALS: Ht 162.6 cm; Wt 90.7 kg
[~2019-10-24 19:19] MED LIST changes: +ROPIVACAINE 0.5% 5 MG/ML 30 ML SDV ONE
[2019-10-24] MEDS ORDERED: HYDROCODONE/APAP 10MG-325MG TAB PO NR (20:15)
[2019-10-24 21:18] LABS: BASOPHILS % 0.3 % (0.0-1.0); EOSINOPHILS % 0.2 % (0.0-6.0); HEMATOCRIT 43.3 % (34.2-44.1); HEMOGLOBIN 13.9 g/dL (12.0-16.0); LYMPHOCYTES # (AUTO) 1.7 (1.0-3.2); LYMPHOCYTES % 14.2 % (18.0-39.1); MEAN CORPUSCULAR HGB CONC 32.1 g/dL (31-35); MEAN CORPUSCULAR VOLUME 84.2 fL (81-99); MONOCYTES # (AUTO) 0.7 (0.2-0.8); MONOCYTES % 6.1 % (4.4-11.3); NEUTROPHILS # (AUTO) 9.1 (2.1-6.9); NEUTROPHILS % 76.8 % (38.7-80.0); PLATELET COUNT 289 x10e3/uL (140-360); RED BLOOD COUNT 5.14 x10e6/uL (3.6-5.1); RED CELL DISTRIBUTION WIDTH 14.8 % (11.7-14.4)
[2019-10-24 21:22] LABS: INR 0.85; PROTHROMBIN TIME 12.1 seconds (11.9-14.5)
[2019-10-24 21:30] LABS: ALANINE AMINOTRANSFERASE 42 IU/L (0-55); ALBUMIN 3.6 g/dL (3.5-5.0); ALBUMIN/GLOBULIN RATIO 1.2 (0.8-2.0); ALKALINE PHOSPHATASE 78 IU/L (40-150); ANION GAP 14.7 mmol/L (8-16); BLOOD UREA NITROGEN 16 mg/dL (7-26); BUN/CREATININE RATIO 23 (6-25); CALCIUM 9.1 mg/dL (8.4-10.2); CARBON DIOXIDE 24 mmol/L (22-29); CHLORIDE 105 mmol/L (98-107); CREATININE, SERUM 0.71 mg/dL (0.57-1.11); EST GLOMERULAR FILTRATION RATE > 60 ML/MIN (60-); GLUCOSE 126 mg/dL (74-118); POTASSIUM 3.7 mmol/L (3.5-5.1); SODIUM 140 mmol/L (136-145)
--- NOTE | 2019-10-24 21:32 | Diagnostic Imaging Report ---
Exam: Left Knee Series. History: Fall/laceration to left knee Comparison: None. Findings: 3 views of the left knee. There is normal bone mineralization. Negative for acute, displaced fracture or dislocation. The joint spaces are preserved. No abnormal soft tissue calcification or mass. No suprapatellar effusion. Soft tissue defect anterior to the proximal portion of the tibia, likely representing the known laceration. Impression: 1. Soft tissue defect anterior to the proximal portion of the tibia consistent with laceration. No underlying acute bony abnormality. Signed by: Dr. Rome Lea M.D. on 10/24/2019 9:30 PM
[2019-10-24 21:34] LABS: PARTIAL THROMBOPLASTIN TIME 22.7 seconds (23.8-35.5)
--- NOTE | 2019-10-24 21:45 | Diagnostic Imaging Report ---
Exam: Left lower leg, 4 views History: Status post fall, laceration to left knee Comparison: None. Findings: There is normal bone mineralization. No acute, displaced fracture or dislocation. Joint spaces preserved. Soft tissue defect anterior to the proximal portion of the tibia, consistent with laceration. Impression: 1. Soft tissue laceration anterior to the proximal portion of the tibia. No underlying acute bony abnormality. Signed by: Dr. Rome Lea M.D. on 10/24/2019 9:44 PM
--- NOTE | 2019-10-24 21:48 | Diagnostic Imaging Report ---
Examination: Single AP view of the chest. COMPARISON: Preop for leg surgery INDICATION: None. IMPRESSION: 1. Lines and Tubes: None 2. Slightly hypoinflated lungs, which result in mild vascular crowding. No consolidation or effusion. 3. Cardiomediastinal silhouette is normal. 4. No acute bony abnormalities. Signed by: Dr. Rome Lea M.D. on 10/24/2019 9:46 PM
[2019-10-24] MEDS ORDERED: ONDANSETRON HCL INJ 2MG/ML 2ML 2 MG/ML VIAL IV PRN (22:00)
[2019-10-24] MEDS: CEFAZOLIN SOD 1 GM/NS 50ML 50 ML IV SCH (22:46)
[2019-10-24] MEDS: SODIUM CHLORIDE 0.9% 1000ML 1,000 ML IV SCH (22:46)
[2019-10-24] MEDS ORDERED: HYDRALAZINE HCL 20 MG/ML VIAL IV STA (23:02)
[2019-10-24] MEDS: HYDROMORPHONE 1MG/1ML INJ IV PRN (23:09)
[2019-10-25] MEDS: HYDROMORPHONE 1MG/1ML INJ IV PRN ×2 (03:36→07:25)
--- NOTE | 2019-10-25 03:57 | NUR ---
PATIENT STATES SHE HAD A TETANUS VACCINE MARCH 2019 WHEN SHE FIRST FELL AND HAD AN INJURY. DR CALHOUN INFORMED.
[2019-10-25 04:22] LABS: BACTERIA,URINE RARE /HPF; EPITHELIAL CELLS,URINE FEW /LPF; PREGNANCY TEST, URINE NEGATIVE (NEGATIVE); YEAST,URINE FEW
[2019-10-25 04:23] LABS: BILIRUBIN,URINE NEGATIVE (NEGATIVE); CLARITY,URINE CLEAR (CLEAR); COLOR,URINE YELLOW (YELLOW); KETONES,URINE NEGATIVE (NEGATIVE); LEUKOCYTE ESTERASE ,URINE TRACE (NEGATIVE); NITRITE,URINE NEGATIVE (NEGATIVE); PROTEIN,URINE DIPSTICK NEGATIVE (NEGATIVE); URINE UROBILINOGEN 0.2 mg/dL (0.2 - 1)
[2019-10-25] MEDS: HYDRALAZINE HCL 20 MG/ML VIAL IV PRN (06:29)
[2019-10-25] MEDS: CEFAZOLIN SOD 1 GM/NS 50ML 50 ML IV SCH ×2 (06:29→18:00)
--- NOTE | 2019-10-25 06:50 | NUR ---
RECEIVED REPORT FROM OFF GOING NURSE. PATIENT IN BED, AWAKE AND ALERT. NO S/S OF ACUTE DISTRESS. REPORTED SHE NEEDS TO VOID BUT DID NOT FEEL SHE COULD GET OOB AND AMBULATE. OFFERED PUREWIC AND PATIENT AGREED. PENDING ROOM ASSIGNMENT FOR ADMISSION. PATIENT REPORTS BEING NPO SINCE 2200 LAST NIGHT. BED DOWN CALL LIGHT IN REACH, WILL CONTINUE TO MONITOR.
[2019-10-25] MEDS: SODIUM CHLORIDE 0.9% 1000ML 1,000 ML IV SCH (07:25)
[2019-10-25] MEDS ORDERED: BACITRACIN 50,000 UNIT VIAL ONE (10:51)
[2019-10-25] MEDS ORDERED: ACETAMINOPHEN 1000 MG/100 ML 100 ML IV ONE (10:56)
[2019-10-25] MEDS ORDERED: LIDOCAINE 1% W/EPINEPHRINE 20 ML VIAL ONE (11:00)
[2019-10-25] MEDS ORDERED: MINERAL OIL STERILE 10ML VIAL ONE (11:11)
--- NOTE | 2019-10-25 11:21 | History and Physical ---
REASON FOR ADMISSION: 1. Left lower extremity open wound secondary to fall. 2. Hypertension. HISTORY OF PRESENT ILLNESS: The patient is a 44-year-old lady, who was walking in a restaurant where she hit some sticky footing that made her fall and sustained a large open wound to the left lower extremity with some exposed tissues. Therefore, she has been admitted for further evaluation and treatment. PAST MEDICAL HISTORY: Significant for hypertension. MEDICATIONS: See MAR. ALLERGIES: SEE MAR. SOCIAL HISTORY: Nonsmoker, nondrinker, lives at home with her . PHYSICAL EXAMINATION: VITAL SIGNS: Blood pressure 152/76, pulse 76, saturations 99% on room air. GENERAL: She has no apparent distress, lying in bed. NECK: Supple. CARDIOVASCULAR: Regular rate and rhythm. LUNGS: Clear to auscultation bilaterally. ABDOMEN: Has good bowel sounds. Soft, nontender. EXTREMITIES: No clubbing or cyanosis. Left leg below the knee on the medial side has a large skin tear and open wound with some exposed tissue. She has good dorsal pedis flow. NEUROLOGIC: Nonfocal. ASSESSMENT/PLAN: 1. Left leg open wound. We will consult Dr. Ontiveros, plastic surgeon to see if she needs any surgical intervention. 2. Left leg pain. We will continue with pain control. 3. Hypertension. We will continue to monitor these home medicines as necessary. 4. Leukocytosis. We will continue to monitor. Please see hospital chart for full details. MD JOSE RAFAEL Oneill/SUMAN /[id number]
[2019-10-25] MEDS ORDERED: MUPIROCIN 2% OINT 22 GM TUBE ONE (11:49)
[2019-10-25] MEDS ORDERED: NEOMYCIN/POLYMYX/BACITR OINT 0.9 GM PKT ONE (12:05)
[2019-10-25] MEDS ORDERED: CEFAZOLIN SOD 1 GM/NS 50ML 0 ML IV ONE (12:22)
[2019-10-25] MEDS ORDERED: FENTANYL CITRATE/PF 100MCG/2 ML INJ ONE (12:37)
[2019-10-25] MEDS ORDERED: HYDROMORPHONE 1MG/1ML INJ ONE (12:59)
[2019-10-25] MEDS ORDERED: HYDRALAZINE HCL 20 MG/ML VIAL ONE (13:00)
[2019-10-25 13:28] VITALS: BP 138/75
--- NOTE | 2019-10-25 13:28 | NUR ---
RCD PT FROM RECOVERY BY BED PT IS ALERT AND ORIENTED VITALS CHECKED PT RESTING ON BED ADMISSION ASSESSMENT DONE PT HAVE WOUND AND WOUND VACC ON LEFT LOWER LEG WORKING GOOD ,GRAFT DONOR SITE HAVE LITTLE OOZING DR KEYS IS AWARE ABOUT IT ,IV PATENT BY SALINE FLUSH INSTRUCTED THE PT REGARDING HOSPITAL POLICY AND ROUTINE BED LOW AND LOCKED CALL LIGHT IN REACH
--- NOTE | 2019-10-25 14:00 | NUR ---
PAGED AND TALKED DR CLEVELAND REGARDING DIET ,HOME MED RENEWAL GOT NEW ORDERS
[2019-10-25] MEDS ORDERED: BYSTOLIC10 MG PO (14:09)
--- NOTE | 2019-10-25 14:30 | NUR ---
wound vacc is working
--- NOTE | 2019-10-25 14:42 | NUR ---
WOUND CARE CONSULT FOR PLACEMENT OF NEGATIVE PRESSURE DRESSING TO POST OPERATIVE WOUND DR KEYS PERFORMED OR DEBRIDEMENT OF FULL THICKNESS WOUND TO LEFT LOWER LEG WITH PLACEMENT OF SPLIT THICKNESS SKIN GRAFT AFTER WHICH PLACEMENT OF HAWLEY AND NEPHEW NEGATIVE PRESSURE UNIT ORDERED IN RECOVERY ROOM PATIENT IN PACU NURSING AT BEDSIDE PATIENT ALERT IV PAIN MEDICATION ADMINISTERED PATIENT STATES NO PAIN AT THIS TIME AT A 2 ON 1-10 SCALE PATIENT PRESENTS WITH POST OPERATIVE WOUND 15CM X14CM WITH EDGES STAPLED INTACT TO SPLIT THICKNESS SKIN GRAFT COVERED WITH XEROFORM TITUS NO BLEEDING OR ADVERSE SIGNS NOTED SMITA SKIN PREPPED AND DRAPED BLACK FOAM PLACED ON WOUND BASE DRAPE USED TO MAKE AIR TIGHT SEAL AND CONNECTED TO UNIT AND CANISTER NEGATIVE PRESSURE SUCTION ACHIEVED 120 MMHG CONTINUOUS SETTING NO SIGNS OF LEAKS OR COMPLAINTS OF PAIN AT THIS TIME DRESSING SECURED WITH LIGHT OUTER REMOVABLE WRAP Addendum: 10/25/19 at 1456 by Rich Lawson RN Amended: Links added.
[2019-10-25] MEDS ORDERED: SUGAMMADEX SODIUM 200 MG/2 ML VIAL IV ONE (15:35)
[2019-10-25 16:00] VITALS: BP 148/87
[2019-10-25] MEDS: NEBIVOLOL 10 MG TAB PO SCH (16:05)
[2019-10-25] MEDS: HYDROCODONE/APAP 5MG-325MG TAB PO PRN (16:05)
[2019-10-25 16:09] VITALS: BP 138/75
[2019-10-25] MEDS ORDERED: LIDOCAINE HCL 2% LOCAL INJ 5 ML SDV VIAL INJ ONE (18:13)
[2019-10-25] MEDS ORDERED: KETOROLAC TROMETHAMINE 30 MG/ML VIAL ONE (18:13)
[2019-10-25] MEDS ORDERED: DEXAMETHASONE SOD PHOS INJ 4 MG/ML VIAL ONE (18:13)
[2019-10-25] MEDS ORDERED: ONDANSETRON HCL INJ 2MG/ML 2ML 2 MG/ML VIAL ONE (18:13)
[2019-10-25] MEDS ORDERED: PROPOFOL IV EMULSION 10 MG/ML 20 ML VIAL ONE (18:13)
--- NOTE | 2019-10-25 18:45 | NUR ---
PT RESTING ON BED BED SIDE REPORT GIVEN TO ONCOMING NURSE
--- NOTE | 2019-10-25 18:56 | Operative Report ---
DATE OF PROCEDURE: 10/25/2019 SURGEON: Jemal Ontiveros MD PREOPERATIVE DIAGNOSIS: Wound left leg, approximately 140 to 150 cm2. POSTOPERATIVE DIAGNOSIS: Wound left leg, approximately 140 to 150 cm2. PROCEDURES: 1. Sharp excisional debridement of skin and subcutaneous tissue, left leg 140 cm2. 2. Split-thickness skin grafting, left leg 140 cm2. ANESTHESIA: General. HISTORY: The patient is a 44-year-old female, who came through the emergency room last night with a large wound on the anterior aspect of the lower leg. The risks, benefits, and alternatives of treatment were discussed with the patient and she is prepared to undergo the procedure as outlined. PROCEDURE IN DETAIL: The patient was marked preoperatively in the holding area. She was brought to the operating theater and after the induction of adequate general anesthesia, she was prepped and draped in a supine position and a time-out was performed. The procedure was begun by performing sharp excisional debridement of all the skin and subcutaneous tissue that was devitalized. Once all this tissue has been removed, the wound was then pulse lavaged with antibiotic-containing solution. The resultant defect measures 140 cm2 and is down full-thickness to the subcutaneous layer. Using a dermatome, a split-thickness skin graft was harvested from the left anterior lateral thigh of approximately 12 to 13 thousands of an inch thickness. It was meshed in a 1-1/2 to 1 fashion and placed onto the wound bed and secured in place using surgical clips. The graft was then dressed with Bactroban ointment, Xeroform gauze, and Wound Care team will place a VAC in the recovery room. The left anterior thigh donor site was soaked with 1% Xylocaine with epinephrine for both hemostasis and analgesia. It was then dressed with Bactroban ointment, Xeroform gauze, and sterile 4 x 4 dressings and occlusive dressings. The patient tolerated the procedure well and brought to recovery room in satisfactory condition. The estimated blood loss of procedure was approximately 25 to 30 mL. She was then admitted for further care and observation. Jemal Ontiveros MD ER/MODL /[id number]
--- NOTE | 2019-10-25 19:06 | Consultation ---
DATE OF CONSULTATION: 10/24/2019 CONSULT REQUESTED BY: [facility] Emergency Room/Dr. Deangelo Lama. Consultation is requested to Jemal Ontiveros MD. CHIEF COMPLAINT: Wound, left leg. HISTORY OF PRESENT ILLNESS: The patient is a 44-year-old female who states that approximately six months ago she fell and sustained a large avulsion type injury on the left anterior leg. She states that the wound required healing by secondary intention with daily wound care and dressing changes. The wound finally healed and left her with a large area of cicatrix. Today, the patient slipped and fell and sustained another significant avulsion wound of the left lower leg with the majority of the flap comprised of the scar tissue from the previous injury. There is a large open area and then the skin flap is markedly devitalized. Request of Plastic surgery evaluation is now being done. PAST MEDICAL HISTORY: Noncontributory. PAST SURGICAL HISTORY: Notable for bariatric surgery and cholecystectomy. PERTINENT PHYSICAL EXAMINATION: GENERAL: The patient is afebrile. VITAL SIGNS: Stable. EXTREMITIES: The examination of the left leg reveals there to be an avulsion-type wound with approximately a 5-6 cm wide x 14-15 cm long area of full-thickness wound down to the subcutaneous tissue. The flap is based laterally. However, the majority of the skin flap as mentioned in the history is comprised of scar tissue. The skin flap is markedly ischemic along its distal edges and extremely mottled along its base. IMPRESSION: Wound, left leg. PLAN: The patient will be taken to the OR tomorrow. She has requested that the devitalized area be completely debrided and a split-thickness skin graft to be performed. Thank you for allowing me to participate in the care your patient. Jemal Ontiveros MD ER/MODL /[id number]
[2019-10-25 20:01] VITALS: BP 129/76
[2019-10-25] MEDS: HYDROMORPHONE 2MG/ML 2 MG/ML ML IV PRN (22:28)
[2019-10-26] VITALS (7 sets, daily range): BP systolic 130–175; BP diastolic 70–100
[2019-10-26] MEDS: CEFAZOLIN SOD 1 GM/NS 50ML 50 ML IV SCH ×3 (02:00→17:06)
[2019-10-26] MEDS: HYDROMORPHONE 2MG/ML 2 MG/ML ML IV PRN ×3 (05:20→15:17)
[2019-10-26 05:33] LABS: BASOPHILS % 0.1 % (0.0-1.0); HEMATOCRIT 38.9 % (34.2-44.1); HEMOGLOBIN 11.9 g/dL (12.0-16.0); LYMPHOCYTES # (AUTO) 1.5 (1.0-3.2); LYMPHOCYTES % 10.9 % (18.0-39.1); MEAN CORPUSCULAR HEMOGLOBIN 26.8 pg (28-32); MEAN CORPUSCULAR HGB CONC 30.6 g/dL (31-35); MEAN CORPUSCULAR VOLUME 87.6 fL (81-99); MONOCYTES # (AUTO) 0.6 (0.2-0.8); MONOCYTES % 4.3 % (4.4-11.3); NEUTROPHILS # (AUTO) 11.4 (2.1-6.9); PLATELET COUNT 226 x10e3/uL (140-360); RED BLOOD COUNT 4.44 x10e6/uL (3.6-5.1)
--- NOTE | 2019-10-26 06:00 | NUR ---
SPOKE TO DR. CLEVELAND AT THIS TIME. SAID OK TO HAVE FOOT PUMPS
[2019-10-26 06:04] LABS: ALANINE AMINOTRANSFERASE 29 IU/L (0-55); ALBUMIN 2.8 g/dL (3.5-5.0); ALKALINE PHOSPHATASE 73 IU/L (40-150); ANION GAP 13.1 mmol/L (8-16); BLOOD UREA NITROGEN 12 mg/dL (7-26); BUN/CREATININE RATIO 19 (6-25); CALCIUM 8.5 mg/dL (8.4-10.2); CARBON DIOXIDE 25 mmol/L (22-29); CHLORIDE 107 mmol/L (98-107); CREATININE, SERUM 0.63 mg/dL (0.57-1.11); EST GLOMERULAR FILTRATION RATE > 60 ML/MIN (60-); GLUCOSE 132 mg/dL (74-118); POTASSIUM 4.1 mmol/L (3.5-5.1); SODIUM 141 mmol/L (136-145)
[2019-10-26] MEDS: NEBIVOLOL 10 MG TAB PO SCH (17:05)
[2019-10-26] MEDS: HYDROMORPHONE 1MG/1ML INJ IV PRN (19:50)
[2019-10-27] VITALS (8 sets, daily range): BP systolic 136–168; BP diastolic 77–97
[2019-10-27] MEDS: CEFAZOLIN SOD 1 GM/NS 50ML 50 ML IV SCH ×3 (02:00→17:17)
[2019-10-27] MEDS: HYDROMORPHONE 1MG/1ML INJ IV PRN ×4 (05:48→22:50)
[2019-10-27] MEDS: CLONIDINE HCL 0.1 MG TAB PO PRN (11:52)
[2019-10-27] MEDS: NEBIVOLOL 10 MG TAB PO SCH (17:17)
[2019-10-28] VITALS (7 sets, daily range): BP systolic 135–177; BP diastolic 74–105
[2019-10-28] MEDS: CEFAZOLIN SOD 1 GM/NS 50ML 50 ML IV SCH ×3 (02:05→17:04)
[2019-10-28] MEDS: HYDROCODONE/APAP 5MG-325MG TAB PO PRN (04:56)
[2019-10-28] MEDS: HYDROMORPHONE 1MG/1ML INJ IV PRN ×5 (06:39→22:21)
--- NOTE | 2019-10-28 07:00 | NUR ---
RECEIVED PATIENT AWAKE RESTING IN BED NO S/S OF DISTRESS. BED LOW, WHEELS LOCKED, SIDE RAILS X2. CALL LIGHT IN REACH WILL CONTINUE TO MONITOR PATIENT.
[2019-10-28] MEDS: HYDRALAZINE HCL 20 MG/ML VIAL IV PRN (08:24)
--- NOTE | 2019-10-28 10:05 | NUR ---
PATIENT A/O X3, EVEN RESPIRATIONS ON RA. LUNG SOUNDS CLEAR TO AUSCULTATION. BOWEL SOUNDS PRESENT. BLE EDEMA PITTING. RIGHT AC [address] G[address] PUREWICK IN PLACE WITH CLEAR YELLOW URINE. LEFT LOWER LEG DRESSING CLEAN, DRY, AND INTACT. NECK AND HAWLEY UNIT IN PLACE. CALL LIGHT IN REACH WILL CONTINUE TO MONITOR PATIENT.
--- NOTE | 2019-10-28 13:09 | NUR ---
Spoke to OP wound care ext [phone], they have patient down for woundvac changes.
--- NOTE | 2019-10-28 13:42 | NUR ---
SPOKE WITH DR. KEYS, PATIENT OK TO DISCHARGE WILL FOLLOW UP AT WOUND CLINIC MONDAY.
[2019-10-28] MEDS: NEBIVOLOL 10 MG TAB PO SCH (17:04)
--- NOTE | 2019-10-28 19:05 | NUR ---
Patient visited in room during nursing rounds. Patient alert and oriented x3. No distress with minor pain on left lower leg. S/P Debridement and skin graft on left leg (on 10/25/19). Patient stated left leg too weak and too painful to ambulate at this time. Wound VAC connected to surgical wound (below left knee) and covered with poncho wrap. Skin graft site (above left knee) covered with dressing and silk tape. Will medicate pt as needed. Calll zapata within reach. Bed alarm active.
[2019-10-29] VITALS (8 sets, daily range): BP systolic 129–183; BP diastolic 82–94
[2019-10-29] MEDS: HYDROMORPHONE 1MG/1ML INJ IV PRN ×7 (01:48→23:44)
[2019-10-29] MEDS: CEFAZOLIN SOD 1 GM/NS 50ML 50 ML IV SCH ×3 (01:50→18:00)
--- NOTE | 2019-10-29 09:16 | NUR ---
received report from SHEILA Mahajan; will assume care for this pt. pt awake, alert, in stable condition.
[2019-10-29] MEDS: CLONIDINE HCL 0.1 MG TAB PO PRN ×2 (13:24→19:54)
[2019-10-29] MEDS: HYDRALAZINE HCL 20 MG/ML VIAL IV PRN (16:36)
[2019-10-29] MEDS: NEBIVOLOL 10 MG TAB PO SCH (18:00)
--- NOTE | 2019-10-29 19:05 | NUR ---
Patient visited in room during nursing rounds. Patient alert and oriented x3. No distress with minor pain on left lower leg. S/P Debridement and skin graft on left leg (on 10/25/19). Patient stated left leg still quite weak and painful to ambulate at this time. Patient reported that today she got up and used the bedside commode. Wound VAC connected to surgical wound (below left knee) and covered with poncho wrap. Skin graft site (above left knee) covered with dressing and silk tape. Will medicate pt as needed. Call zapata within reach. Bed alarm active.
--- NOTE | 2019-10-29 23:00 | NUR ---
Spoke with patient informing about her current IV (Right FA 20g) was last inserted on 10/24/19 and that it was time to change to a new IV per policy. Pt wished to keep current IV since it is still working and not infiltrated. Will pass on this information to incoming dayshift RN.
[2019-10-30] VITALS (8 sets, daily range): BP systolic 127–154; BP diastolic 70–81
[2019-10-30] MEDS: CEFAZOLIN SOD 1 GM/NS 50ML 50 ML IV SCH ×3 (02:29→17:28)
[2019-10-30] MEDS: HYDROMORPHONE 1MG/1ML INJ IV PRN ×5 (05:50→23:41)
--- NOTE | 2019-10-30 13:25 | NUR ---
Visit made by WESLY Sifuentes. Senior Staff Consultant provided pastoral presence, prayer, hospitality, and supportive listening. Senior Staff Consultant informed pt/family of the scope of [employer] and availability. EVAN SOSA Senior Staff Consultant Spiritual Care Department O: [phone]
--- NOTE | 2019-10-30 13:32 | NUR ---
WOUND CARE CONSULT FOR NEGATIVE PRESSURE DRESSING CHANGE (HAWLEY & NEPHEW UNIT) LEFT LOWER LEG POST 8 DAYS DEBRIDEMENT/SKIN GRAFT PLACEMENT BY DR JEAN-BAPTISTE LEFT LOWER LEG GRAFT SITE MEASURES 13CMX 11CM COVERED BY SPLIT THICKNESS SKIN GRAFT AND STAPLED EDGES GRAFT CLEANED WITH NORMAL SALINE PAT DRY COVERED WITH XEROFORM TITUS THEN BLACK FOAM SMITA SKIN PROTECTED WITH DRAPE 120 MMHG SEAL ACHIEVED NO LEAK DETECTED PATIENT WAS PRE MEDICATED STATES MODERATE PAIN WITH PRESSURE OR MOVEMENT PATIENT PLAN IS TO BE DC'D HOME WITH HOME NEGATIVE PRESSURE UNIT AND FOLLOW UP OUTPATIENT WOUND CARE BY DR JEAN-BAPTISTE Addendum: 10/30/19 at 1349 by Rich Lawson RN Amended: Links added.
--- NOTE | 2019-10-30 13:48 | NUR ---
Call from SHEILA Mason. PT is recommending fpc for this patient. Spoke to Ms. Chappell. She lives with her and kids, but "everyone works". She has been very limited by pain to her leg. Informed her she could possibly go to a fpc facility, she does have the criteria for insurance, but also she is set up with the outpatient wound care center and she could go to outpatient pt if she wanted, or maybe home health care. Informed her we would have to have an order from the doctor. She is not sure about what she wants to do. CM to follow up at 4 and check with patient and notify dr. Lama.
--- NOTE | 2019-10-30 15:49 | NUR ---
Went back to meet with patient. She states she will discuss this with Dr. Lama in the AM. Left message for Dr. Lama to let him know what PT recommended and that she would like to talk to him.
[2019-10-30] MEDS: NEBIVOLOL 10 MG TAB PO SCH (17:24)
--- NOTE | 2019-10-30 19:05 | NUR ---
Patient visited in room during nursing rounds. Patient alert and oriented x3. No distress with minor pain on left lower leg. S/P Debridement and skin graft on left leg (on 10/25/19). Patient sitting on bedside commode at this time. Wound VAC connected to surgical wound (below left knee) and covered with poncho wrap. Skin graft site (above left knee) covered with dressing and silk tape. Patient current IV (RAC 20g) appear clean and dry and flushes well. Patient aware current peripheral IV is old and needs to be replaced to prevent infection but patient adamant she wants to keep it and thinks she might possibly be discharged tomorrow. Will pass on information to incoming dayshift RN. Will medicate pt as needed. Call zapata within reach. Bed alarm active.
[2019-10-31] VITALS (8 sets, daily range): BP systolic 131–170; BP diastolic 73–94
[2019-10-31] MEDS: CEFAZOLIN SOD 1 GM/NS 50ML 50 ML IV SCH ×3 (02:38→17:13)
[2019-10-31] MEDS: HYDROMORPHONE 1MG/1ML INJ IV PRN ×6 (02:45→22:47)
[2019-10-31] MEDS: HYDROCODONE/APAP 5MG-325MG TAB PO PRN ×3 (08:50→17:37)
--- NOTE | 2019-10-31 15:20 | NUR ---
Removed IV from right wrist. Pressure dressing applied.
[2019-10-31] MEDS: NEBIVOLOL 10 MG TAB PO SCH (15:45)
--- NOTE | 2019-10-31 19:19 | NUR ---
WALKING ROUNDS PERFORMED, RECEIVED PT LAYING SEMI FOWLERS IN BED, AAOX3, RR EVEN AND NON-LABORED, ON ROOM AIR. DRESSING TO (L) THIGH CDI, WOUND VAC TO (L) CALF AT 120MMHG. NO S/SX OF DISTRESS NOTED, LEFT PT LAYING SEMI FOWLERS IN BED,BED IN LOW LOCKED POSITION, SIDE RAILS UPX2, CALL LIGHT AND PHONE WITHIN REACH.
[2019-11-01] VITALS (9 sets, daily range): BP systolic 144–174; BP diastolic 82–109
[2019-11-01] MEDS: HYDROCODONE/APAP 5MG-325MG TAB PO PRN ×3 (01:24→23:09)
[2019-11-01] MEDS: CEFAZOLIN SOD 1 GM/NS 50ML 50 ML IV SCH ×3 (02:07→17:29)
[2019-11-01] MEDS: HYDROMORPHONE 1MG/1ML INJ IV PRN ×5 (03:25→20:40)
--- NOTE | 2019-11-01 06:00 | NUR ---
PUREWICK CATHETER CHANGED AT THIS TIME. SMITA CARE PERFORMED.
--- NOTE | 2019-11-01 07:00 | NUR ---
Bedside rounding was completed with the off-gong nurse and the pt. is comfortable at this time.
--- NOTE | 2019-11-01 10:22 | NUR ---
The pt. is sp dressing change and requests additional pain med a this time'
--- NOTE | 2019-11-01 12:00 | NUR ---
Met with Ms. Chappell, she spoke to Dr. Lama who did not want to go with SNF - unable to do IV pain medication, and MD was worried about infection risk at a facility. LTAC would be better, but [facility] is closing and likely not enough criteria. DC plan is home and follow up weekly to wound care clinic, possibly home health PT. Ms. Chappell states she has a wheelchair at home and crutches. She states she is doing better with therapy. She is worried about pain though, does not want to not be able to get around. She will talk about it with Dr Lama. This RN asked Dr. Lama about alternative pain control since patient is requiring IV pain medication frequently. MD would not like to order pain patch at this time, continue norco.
--- NOTE | 2019-11-01 12:39 | NUR ---
WOUND CARE CONSULT FOR NEGATIVE PRESSURE DRESSING CHANGE (HAWLEY & NEPHEW UNIT) LEFT LOWER LEG POST 8 DAYS DEBRIDEMENT/SKIN GRAFT PLACEMENT BY DR JEAN-BAPTISTE LEFT LOWER LEG GRAFT SITE MEASURES 13CMX 11CM COVERED BY SPLIT THICKNESS SKIN GRAFT AND STAPLED EDGES GRAFT CLEANED WITH NORMAL SALINE PAT DRY COVERED WITH XEROFORM TITUS THEN BLACK FOAM SMITA SKIN PROTECTED WITH DRAPE 120 MMHG SEAL ACHIEVED NO LEAK DETECTED PATIENT WAS PRE MEDICATED STATES MODERATE PAIN WITH PRESSURE OR MOVEMENT PATIENT PLAN IS TO BE DC'D HOME WITH HOME NEGATIVE PRESSURE UNIT AND FOLLOW UP OUTPATIENT WOUND CARE BY DR JEAN-BAPTISTE Addendum: 11/01/19 at 1254 by Rich Lawson RN Amended: Links added.
[2019-11-01] MEDS: MUPIROCIN 2% OINT 22 GM TUBE TOP SCH (14:00)
--- NOTE | 2019-11-01 16:44 | NUR ---
Nutrition Screen Note RD Recommendation for Physician: Continue regular diet Encourage PO intake Plan of Care: RD following, monitoring for tolerance and adequacy Nutrition reason for involvement: Length of stay Primary Diagnose(s): laceration of left lower extremity, non-infected skin tear of left leg PMH: HTN Ht: 64 in Wt:200 lb BMI: 34.3 kg/m2 IBW: [address] Assessment: (11/01/19) Chart reviewed. Labs and meds reviewed. Pt was admitted with laceration of left lower extremity and non-infected skin tear of left leg. Pt reports a poor appetite and that she has been eating <50% of meals for the past week. Prior to this, pt reports she was eating well. Pt was not interested in a nutrition supplement for added nutrition due to poor appetite. No weight loss reported and pt mentioned she usually weighs 200 lbs. No N/V or chewing/swallowing issues. Will continue to monitor. Current Diet: regular diet Malnutrition Evaluation (11/01/19) The patient does not meet criteria for a specified degree of malnutrition at this time. Will re-evaluate at follow-up as appropriate. Diet Education Needs Assessment: Diet education not indicated, pt is on a regular diet Nutrition Care Level: low Signed: Katharine Roldan, RD, LD
[2019-11-01] MEDS: NEBIVOLOL 10 MG TAB PO SCH (17:29)
--- NOTE | 2019-11-01 18:13 | NUR ---
The pt. is resting comfortably in bed post pain med adm.
--- NOTE | 2019-11-01 23:00 | NUR ---
IV DISCONTINUED FROM (R) FA BY SHEILA DIGGS([facility]), CATHETER TIP INTACT, PRESSURE AND DRESSING APPLIED. NEW IV STARTED TO (L) FA BY Rachel ALVARADO RN([facility]). BLOOD RETURN NOTED AND FLUSHES WITHOUT DIFFICULTY.
[2019-11-02] VITALS (8 sets, daily range): BP systolic 132–181; BP diastolic 81–110
[2019-11-02] MEDS: HYDROMORPHONE 1MG/1ML INJ IV PRN ×4 (00:35→18:27)
[2019-11-02] MEDS: CEFAZOLIN SOD 1 GM/NS 50ML 50 ML IV SCH ×3 (01:19→17:25)
[2019-11-02] MEDS: HYDROCODONE/APAP 5MG-325MG TAB PO PRN ×3 (03:54→17:42)
--- NOTE | 2019-11-02 07:03 | NUR ---
Received patient lying in bed with eyes open. Respiration even and unlabored without SOB. Family at bedside. Patient is currently. Call light in reach.
--- NOTE | 2019-11-02 08:04 | History and Physical ---
HISTORY OF PRESENT ILLNESS: This is a 44-year-old lady who came in after an avulsion injury of the left anterior lower extremity. The patient was started on antibiotic and a consult with Plastics was done and a skin graft was performed by Dr. Ontiveros on the . The patient had excisional debridement of skin and subcu tissue, and also split-thickness skin grafting done. Currently, the patient is doing well. No complaints noted. No chest pains. No shortness of breath. She is sleeping well. PHYSICAL EXAMINATION: VITAL SIGNS: Temperature is afebrile for the last 48 hours, pulse of 72, respirations of 18, blood pressure is 132/84, pulse oximetry of 98%. HEENT: Normocephalic and atraumatic. Pupils are reactive. CVS: S1 and S2 normal. Regular rate and rhythm. ABDOMEN: Nontender and nondistended. EXTREMITIES: No clubbing, no cyanosis, and no edema. Left upper extremity, on peripheral line some area of erythema. Lower extremities, bilaterally erythema present. Left leg has wound and wound VAC in place. ASSESSMENT: 1. Cellulitis of the left lower extremity. 2. Leukocytosis. 3. Status post skin graft. 4. History of hypertension. PLAN: Continue with current management. The patient is on cefazolin right now. Continue hydralazine as needed. Further recommendation per clinical course. We will continue to monitor the patient. Discharge planning depending upon Dr. Ontiveros's services. MD ARMANI Austin/MODL /[id number]
[2019-11-02] MEDS: MUPIROCIN 2% OINT 22 GM TUBE TOP SCH (09:20)
[2019-11-02] MEDS: CLONIDINE HCL 0.1 MG TAB PO PRN (12:18)
[2019-11-02] MEDS: NEBIVOLOL 10 MG TAB PO SCH (17:25)
--- NOTE | 2019-11-02 19:05 | NUR ---
Report given to warehouse worker 2nd shift. Respiration even and unlabored without SOB. Call light in reach.
--- NOTE | 2019-11-02 20:14 | NUR ---
RECEIVED PT IN BED AOX3 .RESPIRATIONS ARE EVEN AND UNLABORED .PT HAS SKIN GRAFT AND WOUND VACUM LEFT THIGH WITH . DRESSING .DENIES PAIN ,CALL LIGHT WITH IN REACH .CONTINUE TO MONITOR
[2019-11-03] VITALS (8 sets, daily range): BP systolic 118–179; BP diastolic 65–103
[2019-11-03] MEDS: HYDROCODONE/APAP 5MG-325MG TAB PO PRN ×6 (01:17→21:45)
[2019-11-03] MEDS: CEFAZOLIN SOD 1 GM/NS 50ML 50 ML IV SCH ×3 (02:00→17:10)
--- NOTE | 2019-11-03 05:55 | NUR ---
PT C/O PAIN AND GIVEN ORDERED PAIN MEDICATION.CALL LIGHT WITH IN REACH .CONTINUE TO MONITOR
--- NOTE | 2019-11-03 07:12 | NUR ---
Received patient lying in bed with eyes closed. Respiration even and unlabored without SOB. Wound vac to left rueda intact, and in placed. Call light in reach.
--- NOTE | 2019-11-03 07:15 | NUR ---
BEDSIDE REPORT GIVEN TO THE ONCOMING NURSE
[2019-11-03] MEDS: AMLODIPINE BESYLATE 5 MG TAB PO SCH (08:47)
[2019-11-03] MEDS: MUPIROCIN 2% OINT 22 GM TUBE TOP SCH (08:48)
--- NOTE | 2019-11-03 09:43 | Progress Note ---
DATE: SUBJECTIVE: A 44-year-old female comes in status post fall and skin graft done on Monday. Currently still having pain in the graft area. No chest pain. No shortness of breath. Continues to use pain medications. OBJECTIVE: VITAL SIGNS: Temperature is 98.3, pulse of 68, respirations of 18, blood pressure is 179/103, and pulse ox of 96%. HEENT: Normocephalic and atraumatic. Pupils reactive to light and accommodation. CVS: S1 and S2 normal. Regular rate and rhythm. ABDOMEN: Nontender and nondistended. EXTREMITIES: Left lower extremity covered in bandage and also wound VAC in place. MICROBIOLOGY: None. IMAGING STUDIES: None. LABORATORY DATA: No labs were done. ASSESSMENT: 1. Ms. Chappell is a 44-year-old status post skin graft. 2. Cellulitis of left lower extremity. 3. Leukocytosis. 4. History of hypertension. PLAN: Continue with antibiotics. Go ahead and add amlodipine to the regimen for blood pressure. Further recommendation per clinical course. We will continue to monitor the patient. MD LISA AustinJ/MODL /[id number]
--- NOTE | 2019-11-03 15:45 | NUR ---
Visit made by the Spiritual Care Department Pastoral Visitor, Matt Mccarthy. PV provided pastoral presence, prayer, hospitality, and supportive listening. Pastoral Visitor informed pt/family of the scope of [employer] and availability. EVAN SOSA Welt Trimming Machine Operator Spiritual Care Department O: [phone] Pager: [phone] ([phone] number calling from)
[2019-11-03] MEDS: NEBIVOLOL 10 MG TAB PO SCH (17:10)
--- NOTE | 2019-11-03 19:10 | NUR ---
Report given to scene shifter. Respiration even and unlabored without SOB. Call light in reach. Wound vac to left rueda intact, in placed.
[2019-11-04] VITALS: BP 153/99
[2019-11-04] MEDS: HYDROCODONE/APAP 5MG-325MG TAB PO PRN ×3 (02:00→12:49)
[2019-11-04] MEDS ORDERED: SODIUM CHLORIDE 0.9% 250ML 250 ML ONE (02:04)
[2019-11-04] MEDS: CEFAZOLIN SOD 1 GM/NS 50ML 50 ML IV SCH ×2 (02:07→09:57)
[2019-11-04 04:00] VITALS: BP 148/83
[2019-11-04 06:03] LABS: BASOPHILS % 0.1 % (0.0-1.0); EOSINOPHILS % 0.4 % (0.0-6.0); HEMATOCRIT 36.3 % (34.2-44.1); HEMOGLOBIN 11.2 g/dL (12.0-16.0); LYMPHOCYTES # (AUTO) 1.4 (1.0-3.2); LYMPHOCYTES % 16.5 % (18.0-39.1); MEAN CORPUSCULAR HEMOGLOBIN 26.9 pg (28-32); MEAN CORPUSCULAR HGB CONC 30.9 g/dL (31-35); MEAN CORPUSCULAR VOLUME 87.3 fL (81-99); MONOCYTES # (AUTO) 0.5 (0.2-0.8); MONOCYTES % 6.1 % (4.4-11.3); NEUTROPHILS # (AUTO) 6.4 (2.1-6.9); NEUTROPHILS % 75.6 % (38.7-80.0); PLATELET COUNT 151 x10e3/uL (140-360); RED BLOOD COUNT 4.16 x10e6/uL (3.6-5.1); RED CELL DISTRIBUTION WIDTH 16.2 % (11.7-14.4)
[2019-11-04 06:22] LABS: ANION GAP 13.6 mmol/L (8-16); BLOOD UREA NITROGEN 12 mg/dL (7-26); BUN/CREATININE RATIO 20 (6-25); CALCIUM 8.7 mg/dL (8.4-10.2); CARBON DIOXIDE 25 mmol/L (22-29); CHLORIDE 105 mmol/L (98-107); CREATININE, SERUM 0.61 mg/dL (0.57-1.11); EST GLOMERULAR FILTRATION RATE > 60 ML/MIN (60-); GLUCOSE 106 mg/dL (74-118); POTASSIUM 3.6 mmol/L (3.5-5.1); SODIUM 140 mmol/L (136-145)
[2019-11-04 08:32] VITALS: BP 140/72
[2019-11-04] MEDS: AMLODIPINE BESYLATE 5 MG TAB PO SCH (09:57)
[2019-11-04] MEDS: MUPIROCIN 2% OINT 22 GM TUBE TOP SCH (09:57)
[2019-11-04] MEDS ORDERED: ONDANSETRON HCL 4 MG ORAL DISINTEGRATING TAB PO PRN (10:30)
--- NOTE | 2019-11-04 16:15 | NUR ---
Patient discharged home, verbalized understanding of d/c instructions.
--- NOTE | 2019-11-10 01:36 | Discharge Summary ---
DISCHARGE DIAGNOSES: 1. Status post fall. 2. Left leg open wound status post surgery with skin graft. 3. Cellulitis of left lower extremity. 4. Hypertension. 5. Anemia. HISTORY OF PRESENT ILLNESS AND HOSPITAL COURSE: See hospital chart for full details. The patient is a lady, who fell and sustained an open wound to the left lower extremity that required surgery by Dr. Ontiveros, of Plastics where he used to skin graft from her left upper thigh to the left lower leg area without any complications. The patient was kept in the hospital postoperatively for pain control. Once her pain is well controlled with p.o. medications, she is able to be discharged home in good condition once she was cleared by Dr. Ontiveros. She will follow up in 1 to 2 weeks with me as well as with Dr. Ontiveros and continue with her pain medication. Please see hospital chart for full details. MD JOSE RAFAEL Oneill/SUMAN /[id number]
== END 2019-11-04 13:52 | disposition home or self-care (01) | DRG 572 ==
LOC: ER 19:19 → PACU V 22:03 → UNDOADMOB 22:03 → ERHOLD 22:03 → OR 10-25 08:00 → MED/SURG 10-25 13:51 → OBSVTOIN 10-26 07:49
PROVIDERS: ADMIT Internal Medicine; ATTEND Internal Medicine
PROC: 0JBP0ZZ Excision of Left Lower Leg Subcutaneous Tissue and Fascia, Open Approach (ICD-10-PCS; principal; 2019-10-26)
PROC: 0JRP07Z Replacement of Left Lower Leg Subcutaneous Tissue and Fascia with Autologous Tissue Substitute, Open Approach (ICD-10-PCS; 2019-10-26)
PROC: 0JBM0ZZ Excision of Left Upper Leg Subcutaneous Tissue and Fascia, Open Approach (ICD-10-PCS; 2019-10-26)
DX: L03.116 Cellulitis of left lower limb (principal); S81.802A Unspecified open wound, left lower leg, initial encounter; I10 Essential (primary) hypertension; D72.829 Elevated white blood cell count, unspecified; I16.0 Hypertensive urgency; W01.0XXA Fall on same level from slipping, tripping and stumbling without subsequent striking against object, initial encounter; Y93.89 Activity, other specified; Y92.511 Restaurant or cafe as the place of occurrence of the external cause; D64.9 Anemia, unspecified
CPT/HCPCS: 36415; 71045; 80048; 80053; 81001; 81025; 85025; 85610; 85730; 97139; 97605; 97606; 99284; G0378; J0360; J0690; J1100; J1170; J1885; J2001; J2405; J2795; J3010; J7030; J7050

== ENCOUNTER → 2019-11-08 | Outpatient (CLI) | payer BC ==
[~2019-11-08] MED LIST changes: +BYSTOLIC10 MG PO; -ROPIVACAINE 0.5% 5 MG/ML 30 ML SDV ONE
== END ==
LOC: WCC 15:07
PROVIDERS: ATTEND Plastic Surgery
DX: S81.802A Unspecified open wound, left lower leg, initial encounter (principal); M96.89 Other intraoperative and postprocedural complications and disorders of the musculoskeletal system; Z94.5 Skin transplant status

== ENCOUNTER → 2019-11-11 | Outpatient (CLI) | payer BC | LOC: WCC 15:44 | PROVIDERS: ATTEND Plastic Surgery | DX: S81.802A Unspecified open wound, left lower leg, initial encounter (principal); M96.89 Other intraoperative and postprocedural complications and disorders of the musculoskeletal system; Z52.10 Skin donor, unspecified; Z94.5 Skin transplant status; E44.0 Moderate protein-calorie malnutrition; I10 Essential (primary) hypertension; W10.1XXA Fall (on)(from) sidewalk curb, initial encounter ==

== ENCOUNTER → 2019-11-18 | Outpatient (CLI) | payer BC | LOC: WCC 15:27 | PROVIDERS: ATTEND Plastic Surgery | DX: M96.89 Other intraoperative and postprocedural complications and disorders of the musculoskeletal system (principal); E44.0 Moderate protein-calorie malnutrition; Z52.10 Skin donor, unspecified; Z94.5 Skin transplant status; I10 Essential (primary) hypertension; W10.1XXA Fall (on)(from) sidewalk curb, initial encounter ==

== ENCOUNTER → 2019-12-02 | Outpatient (CLI) | payer BC | LOC: WCC 13:43 | PROVIDERS: ATTEND Plastic Surgery | DX: M96.89 Other intraoperative and postprocedural complications and disorders of the musculoskeletal system (principal); E44.0 Moderate protein-calorie malnutrition; Z52.10 Skin donor, unspecified; Z94.5 Skin transplant status; I10 Essential (primary) hypertension; W10.1XXA Fall (on)(from) sidewalk curb, initial encounter ==

== ENCOUNTER 2021-05-26 05:23 | Emergency (ER) | payer BC ==
[~2021-05-26] VITALS: Ht 162.6 cm; Wt 90.7 kg
== END 2021-05-26 07:02 | disposition home or self-care (01) ==
LOC: ER 05:37
DX: U07.1 COVID-19 (principal); I10 Essential (primary) hypertension
CPT/HCPCS: 99282

== ENCOUNTER 2023-10-23 12:09 | Emergency (ER) | payer BC ==
[~2023-10-23] VITALS: Ht 160 cm; Wt 77.6 kg
[~2023-10-23 12:09] MED LIST changes: +LISINOPRIL10 MG PO
[2023-10-23 14:26] LABS: BILIRUBIN,URINE NEGATIVE (NEGATIVE); CLARITY,URINE SL CLOUDY (CLEAR); COLOR,URINE YELLOW (YELLOW); GLUCOSE, URINE 500 (NEGATIVE); KETONES,URINE NEGATIVE (NEGATIVE); LEUKOCYTE ESTERASE ,URINE TRACE (NEGATIVE); NITRITE,URINE NEGATIVE (NEGATIVE); PH,URINE 5.5 (5 - 7); PROTEIN,URINE DIPSTICK 1+ (NEGATIVE); URINE UROBILINOGEN 0.2 mg/dL (0.2 - 1)
[2023-10-23 14:36] LABS: EPITHELIAL CELLS,URINE MODERATE /LPF; WBC,URINE (MAN) 0-5 /HPF (0-5)
[2023-10-23 14:37] LABS: AMORPHOUS SEDIMENT,URINE FEW (FEW); BACTERIA,URINE MODERATE /HPF; HYALINE CASTS 0-1 (0-1); TRANSITIONAL EPI CELLS,URINE MODERATE; YEAST,URINE FEW
[2023-10-23] MEDS ORDERED: CLINDAMYCIN PHOS 900MG/ 50ML 50 ML IV ONE (15:30)
[2023-10-23 17:19] LABS: BASOPHILS % 0.2 % (0.0-1.0); EOSINOPHILS % 0.2 % (0.0-6.0); HEMATOCRIT 45.9 % (34.2-44.1); HEMOGLOBIN 15.2 g/dL (12.0-16.0); LYMPHOCYTES # (AUTO) 2.3 (1.0-3.2); LYMPHOCYTES % 19.2 % (18.0-39.1); MEAN CORPUSCULAR HEMOGLOBIN 30.2 pg (28-32); MEAN CORPUSCULAR HGB CONC 33.1 g/dL (31-35); MEAN CORPUSCULAR VOLUME 91.1 fL (81-99); MONOCYTES # (AUTO) 0.6 (0.2-0.8); MONOCYTES % 5.1 % (4.4-11.3); PLATELET COUNT 247 x10e3/uL (140-360); RED BLOOD COUNT 5.04 x10e6/uL (3.6-5.1); RED CELL DISTRIBUTION WIDTH 14.8 % (11.7-14.4); WHITE BLOOD COUNT 12.16 x10e3/uL (4.8-10.8)
[2023-10-23 17:25] LABS: INR 0.98; PROTHROMBIN TIME 13.2 seconds (11.9-14.5)
[2023-10-23 17:29] LABS: PARTIAL THROMBOPLASTIN TIME 21.8 seconds (23.8-35.5)
[2023-10-23 17:35] LABS: ALBUMIN 3.8 g/dL (3.5-5.0); ALBUMIN/GLOBULIN RATIO 0.9 (0.8-2.0); ANION GAP 20.3 mmol/L (8-16); BILIRUBIN,TOTAL 1.3 mg/dL (0.2-1.2); CALCIUM 9.5 mg/dL (8.4-10.2); CREATININE, SERUM 1.48 mg/dL (0.57-1.11); POTASSIUM 4.3 mmol/L (3.5-5.1); TOTAL PROTEIN 8.1 g/dL (6.5-8.1)
[2023-10-23] MEDS ORDERED: LACTATED RINGER'S 1,000 ML IV ONE (18:00)
[2023-10-23] MEDS ORDERED: INSULIN REGULAR, HUMAN 100 UNIT/1 ML IV ONE (18:00)
[2023-10-23] MEDS ORDERED: INSULIN REGULAR, HUMAN 100 UNIT/1 ML SQ ONE (18:00)
[2023-10-23 18:15] VITALS: O2SAT 100
[2023-10-23 19:51] LABS: EOSINOPHILS % (MANUAL) 1 % (0-7); LYMPHOCYTES % (MANUAL) 8 % (19-48); MONOCYTES % (MANUAL) 7 % (3.4-9.0); NEUTROPHILS % (MANUAL) 75 % (40-74); PLATELET ESTIMATE ADEQUATE; PLATELET MORPHOLOGY COMMENT NORMAL; RBC MORPHOLOGY COMMENT NORMAL; REACTIVE LYMPHOCYTES 9
== END 2023-10-23 18:30 | disposition other institution (70) ==
LOC: ER 12:43
DX: M54.9 Dorsalgia, unspecified (principal); S81.811A Laceration without foreign body, right lower leg, initial encounter; L03.115 Cellulitis of right lower limb; I99.8 Other disorder of circulatory system; W18.39XA Other fall on same level, initial encounter; Y93.01 Activity, walking, marching and hiking; Y92.89 Other specified places as the place of occurrence of the external cause; E11.65 Type 2 diabetes mellitus with hyperglycemia; I10 Essential (primary) hypertension; E78.5 Hyperlipidemia, unspecified; D64.9 Anemia, unspecified; R94.31 Abnormal electrocardiogram [ECG] [EKG]; Z98.84 Bariatric surgery status
CPT/HCPCS: 36415; 70450; 70486; 71046; 72125; 80053; 81001; 82948; 83880; 85025; 85610; 85730; 87040; 87086; 93005; 93925; 99284; J7121